=== PATIENT | female | born 1935 | race Caucasian/White ===

== ENCOUNTER 2016-10-13 08:45 | Emergency (ER) | payer MEDICARE, MEDICAID ==
[~2016-10-13] VITALS: Ht 149.9 cm; Wt 60.0 kg
[~2016-10-13 08:45] MED LIST: ASPI81TA11 PO; BIOT5000 PO; CALC1TAB26 PO; CIPR500T4 PO; DONE10TA14 PO; DOXY100C PO; EVEN10003 PO; FERR325T72 PO; HYDR-2768 PO; LISI-360 PO; MAPA325T6 PO; OMEG1050 PO; OMEP20TA PO; PROBCAP4 PO; PROMSYP3 PO; TAB-TAB PO; ULTR50TA PO; VITA10004 PO; ZOFR4TAB3 SL; [UNRECOGNIZED DRUG - CODE] PO
[2016-10-13 09:35] VITALS: BP_SYST 186; BP_SYST 191; BP_DIAS 83; BP_DIAS 88; PULSE 86; RESP 16; TEMP 98.3; O2SAT 99
[2016-10-13] MEDS ORDERED: diphenhydrAMINE HCL 50 MG/ML VIAL IVP ONE (09:45)
[2016-10-13] MEDS ORDERED: SODIUM CHLORIDE 0.9% FLUSH 10 ML FLUSH IVF PRN (09:45)
[2016-10-13] MEDS ORDERED: METOCLOPRAMIDE HCL 10 MG/2 ML VIAL IVP ONE (09:45)
[2016-10-13] MEDS ORDERED: FERR1TAB58 PO (10:03)
[2016-10-13] MEDS ORDERED: TRAM50TA PO (10:03)
[2016-10-13] MEDS ORDERED: CALCTAB23 PO (10:03)
[2016-10-13] MEDS ORDERED: BIOT1000 PO (10:03)
[2016-10-13] MEDS ORDERED: EVEN10003 (10:03)
[2016-10-13] MEDS ORDERED: ACET1CAP18 PO (10:03)
[2016-10-13] MEDS ORDERED: GLEE100T PO (10:03)
[2016-10-13] MEDS ORDERED: ASPI81TA81 (10:03)
[2016-10-13 10:33] LABS: AUTOMATED NEUTROPHIL # 3.6 TH/MM3 (1.8-7.7); BASOPHIL # 0.1 TH/MM3 (0-0.2); BASOPHIL % 1.1 % (0.0-2.0); EOSINOPHIL # 0.1 TH/MM3 (0-0.4); EOSINOPHIL % 2.1 % (0.0-4.0); HEMATOCRIT 29.3 % (35.0-46.0); HEMO FLAGS DIFF FINAL; LYMPH % 16.8 % (9.0-44.0); LYMPHOCYTE # 0.9 TH/MM3 (1.0-4.8); MEAN CELL VOLUME 90.2 FL (80.0-100.0); MEAN CORPUSCULAR HEMOGLOBIN 30.4 PG (27.0-34.0); MEAN CORPUSCULAR HGB CONC 33.7 % (32.0-36.0); MONO % 14.6 % (0.0-8.0); NEUT % 65.4 % (16.0-70.0); PLATELET COUNT 126 TH/MM3 (150-450); RED BLOOD COUNT 3.24 MIL/MM3 (4.00-5.30); RED CELL DISTRIBUTION WIDTH 15.3 % (11.6-17.2); WHITE BLOOD COUNT 5.4 TH/MM3 (4.0-11.0)
--- NOTE | 2016-10-13 10:46 | PD ---
HPI Chief Complaint: Headache Time Seen by Provider: 09:37 Travel History International Travel<30 days: No Contact w/Intl Traveler<30days: No Traveled to known affect area: No History of Present Illness HPI Patient is a pleasant 80-year-old female presents emergency department with complaint of headache. Patient states that for the last 4 days she has had a bilateral frontotemporal headache. Throbbing in nature. She is been taking some Tylenol at home without much improvement of her symptoms. No associated visual changes, nausea, vomiting, neck stiffness. She has not noticed any other neurologic symptoms symptoms numbness, tingling, weakness. Patient is not a headachy person by nature, states she gets headaches infrequently. Though this is not the worse headache of her life, she states that it is approximately 8 out of 10 in severity. 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 Patient states that she is on Gleevec for her life but to her knowledge is cancer free. PFSH Past Medical History Hx Anticoagulant Therapy: Yes Anemia: Yes Arthritis: No Asthma: No Autoimmune Disease: No Anxiety: Yes Depression: No Heart Rhythm Problems: No Cancer: Yes (INTESTINAL) Cardiovascular Problems: Yes High Cholesterol: No Chest Pain: No Congestive Heart Failure: No COPD: No Diminished Hearing: No GERD: Yes Glaucoma: No Genitourinary: No Headaches: No Hepatitis: No Hiatal Hernia: No Hypertension: Yes Immune Disorder: No Kidney Stones: No Musculoskeletal: Yes (TENDON TEAR/STRAIN TO RT THUMB/IMPAIRED FUNCTION.) Psychiatric: No Migraines: No Myocardial Infarction: No Pneumonia: Yes Radiation Therapy: No Renal Failure: No Seizures: No Sickle Cell Disease: No Sleep Apnea: No Thyroid Disease: Yes Ulcer: No Tetanus Vaccination: > 5 Years Influenza Vaccination: Yes Menopausal: Yes : 3 Para: 3 Miscarriage: 0 : 0 Past Surgical History Abdominal Surgery: Yes (GI/TUMOR REMOVALS) AICD: No Appendectomy: Yes Arteriovenous Shunt: No Cardiac Surgery: No Section: Yes (X3) Cholecystectomy: Yes Ear Surgery: No Endocrine Surgery: No Eye Surgery: Yes (CATARACT REMOVAL; LENS IMPLANTS BILATERALLY) Genitourinary Surgery: No Gynecologic Surgery: Yes Hysterectomy: Yes Insulin Pump: No Joint Replacement: No Oral Surgery: No Pacemaker: No Thoracic Surgery: No Other Surgery: Yes Social History Alcohol Use: Yes (RARELY) Tobacco Use: No Substance Use: No Allergies-Medications (Allergen,Severity, Reaction): Coded Allergies: Novocain (Verified Allergy, Severe, 10/13/16) Procaine (Verified Allergy, Severe, ANAPHYLAXIS, 10/13/16) Reported Meds & Prescriptions Reported Meds & Active Scripts Active Reported Biotin 1,000 Mcg Tab 1,000 Mg PO Evening [place] Oil 1,000 Mg Cap Iron (Ferrous Sulfate) 50 Mg Tab 65 Mg PO DAILY Calcium 500 + D (Calcium Carbonate-Vitamin D) 500-125 Mg-Unit Tab 1 Tab PO BID Aspir-81 (Aspirin) 81 Mg Tabdr Tramadol (Tramadol HCl) 50 Mg Tab 50 Mg PO Q6H PRN Gleevec (Imatinib Mesylate) 100 Mg Tab 400 Mg PO DAILY Tylenol (Acetaminophen) 325 Mg Cap 325 Mg PO Q6H PRN Review of Systems Except as stated in HPI: all other systems reviewed are Neg Physical Exam Narrative GENERAL: Pleasant thin elderly female with bright pink hair in no acute distress SKIN: Warm and dry. HEAD: Atraumatic. Normocephalic. No temporal tenderness to palpation. EYES: Pupils equal and round. EOMI without nystagmus No scleral icterus. No injection or drainage. ENT: No nasal bleeding or discharge. Mucous membranes pink and moist. NECK: Supple without tenderness to palpation, no nuchal rigidity CARDIOVASCULAR: Regular rate and rhythm. RESPIRATORY: No accessory muscle use. GASTROINTESTINAL: Abdomen soft, non-tender, nondistended. MUSCULOSKELETAL: Moves all extremities normally. NEUROLOGICAL: Awake and alert. No obvious cranial nerve deficits. Motor grossly within normal limits. Normal speech. PSYCHIATRIC: Appropriate mood and affect; insight and judgment normal. Data Data Last Documented VS Vital Signs Date Time Temp Pulse Resp B/P Pulse Ox O2 Delivery O2 Flow Rate FiO2 10/13/16 12:30 87 16 137/79 99 Room Air 10/13/16 09:35 98.3 Orders Complete Blood Count With Diff (10/13/16 09:44) Basic Metabolic Panel (Bmp) (10/13/16 09:44) Ecg Monitoring (10/13/16 09:44) Iv Access Insert/Monitor (10/13/16 09:44) Oximetry (10/13/16 09:44) Sodium Chloride 0.9% Flush (Ns Flush) (10/13/16 09:45) Diphenhydramine Inj (Benadryl Inj) (10/13/16 09:45) Metoclopramide Inj (Reglan Inj) (10/13/16 09:45) Mri Brain W&W/O Contrast (10/13/16 ) Mra Brain W/O Contrast (Cow) (10/13/16 ) Potassium Chloride (Kcl) (10/13/16 11:15) Ketorolac Inj (Toradol Inj) (10/13/16 12:45) Labs Laboratory Tests Test 10/13/16 09:55 White Blood Count 5.4 TH/MM3 Red Blood Count 3.24 MIL/MM3 Hemoglobin 9.9 GM/DL Hematocrit 29.3 % Mean Corpuscular Volume 90.2 FL Mean Corpuscular Hemoglobin 30.4 PG Mean Corpuscular Hemoglobin 33.7 % Concent Red Cell Distribution Width 15.3 % Platelet Count 126 TH/MM3 Mean Platelet Volume 9.0 FL Neutrophils (%) (Auto) 65.4 % Lymphocytes (%) (Auto) 16.8 % Monocytes (%) (Auto) 14.6 % Eosinophils (%) (Auto) 2.1 % Basophils (%) (Auto) 1.1 % Neutrophils # (Auto) 3.6 TH/MM3 Lymphocytes # (Auto) 0.9 TH/MM3 Monocytes # (Auto) 0.8 TH/MM3 Eosinophils # (Auto) 0.1 TH/MM3 Basophils # (Auto) 0.1 TH/MM3 CBC Comment DIFF FINAL Differential Comment Sodium Level 144 MEQ/L Potassium Level 2.9 MEQ/L Chloride Level 106 MEQ/L Carbon Dioxide Level 29.2 MEQ/L Anion Gap 9 MEQ/L Blood Urea Nitrogen 13 MG/DL Creatinine 0.92 MG/DL Estimat Glomerular Filtration 59 ML/MIN Rate Random Glucose 99 MG/DL Calcium Level 8.4 MG/DL MDM Medical Decision Making Medical Screen Exam Complete: Yes Emergency Medical Condition: Yes Medical Record Reviewed: Yes Differential Diagnosis 80-year-old female with history of GIST on Gleevec here with complaint of 4 days of bilateral frontal temporal headache. Differential includes tension headache, cluster headache, migraine headache. There are no reproducible tenderness within the temporal region on exam to suggest temporal arteritis. Given her history of cancer, and the lack of frequent headaches metastatic lesions are certainly on the differential. My suspicion for subarachnoid hemorrhage or meningitis is exceedingly low. Narrative Course Patient placed on monitor, IV established and blood obtained. Patient was given Benadryl, Reglan for headache. CBC, BMP were obtained and notable for hemoglobin 9.9 which is up from her most recent baseline. Potassium 2.9, replaced with 80 mEq orally. MRI of the brain with and without contrast, MRA of the brain showed no acute abnormalities. Patient felt improved after Toradol and will be discharged home. Diagnosis Primary Impression: Headache Qualified Code: R51 - Acute nonintractable headache, unspecified headache type Referrals: Primary Care Physician as needed Patient Instructions: General Instructions Additional Instructions: Return to the emergency department for the warning signs discussed. Med/Other Pt SpecificInfo: No Change to Meds Disposition: 01 DISCHARGE HOME Condition: Stable Izzy Hay MD Oct 13, 2016 10:46
[2016-10-13 11:02] LABS: BICARBONATE 29.2 MEQ/L (21.0-32.0)
[2016-10-13 11:12] LABS: POTASSIUM 2.9 MEQ/L (3.5-5.1)
[2016-10-13] MEDS ORDERED: POTASSIUM CHLORIDE 20 MEQ CONTROLLED RELEASE TAB PO ONE (11:15)
[2016-10-13 12:30] VITALS: BP 137/79; PULSE 87; RESP 16; O2SAT 99
[2016-10-13] MEDS ORDERED: KETOROLAC TROMETHAMINE 30 MG/ML (IVP) VIAL IV PUSH ONE (12:45)
--- NOTE | 2016-10-13 13:06 | RADRPT ---
EXAM DATE/TIME: 10/13/2016 11:46 [facility] COMPARISON: No previous studies available for comparison. INDICATIONS : Mass. Cephaligia. Hx of colon ca. MEDICAL HISTORY : Carcinoma, colon. Hypertension. SURGICAL HISTORY : Appendectomy. Colon resection. Left femur/hip ENCOUNTER: Initial ACUITY: 2 day PAIN SCORE: 5/10 LOCATION: head Please note a normal MRA of the brain does not entirely exclude the possibility of a small aneurysm, nor the possibility of distal intracranial vessel disease. TECHNIQUE: 3D time of flight MRA was performed. Source images, multiplanar STS MIP, and 3D volume MIP reconstru ctions were reviewed. FINDINGS: There is excellent visualization of the major intracranial arteries out to the second-order branch ve ssels. There is no evidence for aneurysm, vessel truncation or stenosis, and no evidence for vascula r malformation. Patient is right vertebral dominance with a diminutive left vertebral terminating in PICA branch. 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 Patient is right vertebral dominant. Anatomic variant of the [place] as above. 2. Otherwise, intracranial vessels are all patent without aneurysmal disease. Rickey Ramírez MD on October 13, 2016 at 13:01 Board Certified Radiologist. This report was verified electronically.
--- NOTE | 2016-10-13 13:13 | RADRPT ---
EXAM DATE/TIME: 10/13/2016 11:46 [facility] COMPARISON: No previous studies available for comparison. INDICATIONS : Cephalgia. Hx of colon ca. CONTRAST: 12 cc Omniscan (gadodiamide) IV MEDICAL HISTORY : Carcinoma, colon. Hypertension. SURGICAL HISTORY : Appendectomy. Colon resection. Left femur/hip ENCOUNTER: Initial ACUITY: 2 day PAIN SCORE: 3/10 LOCATION: head TECHNIQUE: Multiplanar, multisequence MRI of the brain was performed both prior to and following the administrat ion of paramagnetic contrast. FINDINGS: CEREBRUM: The ventricles are normal for age. No evidence of midline shift, mass lesion, hemorrhage or acute in farction. No extraaxial fluid collections are seen. The pituitary gland and suprasellar cistern are normal in configuration. There is an old lacunar infarct in the left basal ganglia. WHITE MATTER: There is extensive white matter signal abnormality most consistent with microvascular ischemic demyel inative change. No significant signal abnormalities are seen in the white matter. POSTERIOR FOSSA: The cerebellum and brainstem are intact. The 4th ventricle is midline. The cerebellopontine angle is unremarkable. The cerebellar tonsils are normal in position. DIFFUSION IMAGING: No focal areas of restricted diffusion are seen. No evidence of acute infarction. EXTRACRANIAL: The visualized portions of the orbits are unremarkable. There is mucoperiosteal sinus disease involvi ng the right maxillary sinus. POST-CONTRAST: No abnormal areas of parenchymal or dural enhancement. No evidence of blood-brain barrier breakdown. CONCLUSION: 1. Punctate, old lacunar infarct in the left basal ganglia. No acute intracranial abnormality identif ied. 2. No findings to indicate metastatic disease to the brain. 3. 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 Kristopher Villela MD on October 13, 2016 at 13:06 Board Certified Radiologist. This report was verified electronically.
[2016-10-13] MEDS ORDERED: GADODIAMIDE PF 287 MG/ML 5 ML VIAL (for RAD MRI) IV ONE (14:38)
== END 2016-10-13 14:25 | disposition home or self-care (01) ==
LOC: NEPB 08:45
DX: R51 Headache (principal); E87.6 Hypokalemia; I10 Essential (primary) hypertension; Z79.01 Long term (current) use of anticoagulants
CPT/HCPCS: 70544; 70553; 80048; 85025; 96374; 96375; 99284; A9579; J1200; J1885; J2765

== ENCOUNTER 2016-10-17 14:24 | Emergency (ER) | payer MEDICARE, MEDICAID ==
[~2016-10-17] VITALS: Ht 149.9 cm; Wt 65.0 kg
[~2016-10-17 14:24] MED LIST changes: +ACET1CAP18 PO; -ASPI81TA11 PO; +ASPI81TA81; +BIOT1000 PO; -BIOT5000 PO; -CALC1TAB26 PO; +CALCTAB23 PO; -CIPR500T4 PO; -DONE10TA14 PO; -DOXY100C PO; +EVEN10003; -EVEN10003 PO; +FERR1TAB58 PO; -FERR325T72 PO; +GLEE100T PO; -HYDR-2768 PO; -LISI-360 PO; -MAPA325T6 PO; -OMEG1050 PO; -OMEP20TA PO; -PROBCAP4 PO; -PROMSYP3 PO; -TAB-TAB PO; +TRAM50TA PO; -ULTR50TA PO; -VITA10004 PO; -ZOFR4TAB3 SL; -[UNRECOGNIZED DRUG - CODE] PO
[2016-10-17 14:27] VITALS: BP 222/100; PULSE 87; RESP 17; TEMP 98.2; O2SAT 96
[2016-10-17] MEDS ORDERED: ACETAMINOPHEN 500 MG CPLT PO ONE (15:30)
--- NOTE | 2016-10-17 15:55 | PD ---
HPI Chief Complaint: Fall Time Seen by Provider: 15:17 Travel History International Travel<30 days: No Contact w/Intl Traveler<30days: No Traveled to known affect area: No History of Present Illness HPI Patient is a pleasant 80-year-old female presents emergency department after fall. Patient slipped, falling backwards and hitting her bottom back and head. No LOC. She notes a occipital headache mild. No nausea or vomiting. Patient also complains of pain in the right back region. This is made slightly worse with movement but she has been able to ambulate without any difficulty. Pain is mild. PFSH Past Medical History Hx Anticoagulant Therapy: Yes Anemia: Yes Arthritis: No Asthma: No Autoimmune Disease: No Anxiety: Yes Depression: No Heart Rhythm Problems: No Cancer: Yes (INTESTINAL) Cardiovascular Problems: Yes High Cholesterol: No Chemotherapy: Yes Chest Pain: No Congestive Heart Failure: No COPD: No Diminished Hearing: No GERD: Yes Glaucoma: No Genitourinary: No Headaches: No Hepatitis: No Hiatal Hernia: No Hypertension: Yes Immune Disorder: No Kidney Stones: No Musculoskeletal: Yes (TENDON TEAR/STRAIN TO RT THUMB/IMPAIRED FUNCTION.) Psychiatric: No Migraines: No Myocardial Infarction: No Pneumonia: Yes Radiation Therapy: No Renal Failure: No Seizures: No Sickle Cell Disease: No Sleep Apnea: No Thyroid Disease: Yes Ulcer: No Tetanus Vaccination: > 5 Years Influenza Vaccination: Yes ?: Not Menopausal: Yes : 3 Para: 3 Miscarriage: 0 : 0 Past Surgical History Abdominal Surgery: Yes (GI/TUMOR REMOVALS) AICD: No Appendectomy: Yes Arteriovenous Shunt: No Cardiac Surgery: No Section: Yes (X3) Cholecystectomy: Yes Ear Surgery: No Endocrine Surgery: No Eye Surgery: Yes (CATARACT REMOVAL; LENS IMPLANTS BILATERALLY) Genitourinary Surgery: No Gynecologic Surgery: Yes Hysterectomy: Yes Insulin Pump: No Joint Replacement: No Oral Surgery: No Pacemaker: No Thoracic Surgery: No Other Surgery: Yes Social History Alcohol Use: Yes (RARELY) Tobacco Use: No Substance Use: No Allergies-Medications (Allergen,Severity, Reaction): Coded Allergies: Novocain (Verified Allergy, Severe, 10/17/16) Procaine (Verified Allergy, Severe, ANAPHYLAXIS, 10/17/16) Reported Meds & Prescriptions Reported Meds & Active Scripts Active Reported Biotin 1,000 Mcg Tab 1,000 Mg PO Evening [place] Oil 1,000 Mg Cap Iron (Ferrous Sulfate) 50 Mg Tab 65 Mg PO DAILY Calcium 500 + D (Calcium Carbonate-Vitamin D) 500-125 Mg-Unit Tab 1 Tab PO BID Aspir-81 (Aspirin) 81 Mg Tabdr Tramadol (Tramadol HCl) 50 Mg Tab 50 Mg PO Q6H PRN Gleevec (Imatinib Mesylate) 100 Mg Tab 400 Mg PO DAILY Tylenol (Acetaminophen) 325 Mg Cap 325 Mg PO Q6H PRN Review of Systems Except as stated in HPI: all other systems reviewed are Neg Physical Exam Narrative GENERAL: Elderly female in no acute distress SKIN: Focused skin assessment warm/dry. HEAD: Small hematoma on the occiput Normocephalic. EYES: Pupils equal and round. No scleral icterus. No injection or drainage. ENT: No nasal bleeding or discharge. Mucous membranes pink and moist. NECK: Supple without midline tenderness to palpation CARDIOVASCULAR: Regular rate and rhythm. RESPIRATORY: No accessory muscle use. MUSCULOSKELETAL: No midline tenderness to palpation of the cervical, thoracic, lumbar spine. No obvious deformity. Patient has tenderness to palpation over the right buttock/sacral region. NEUROLOGICAL: Awake and alert. Normal gait, GCS 15 with nonfocal neuro exam. Normal speech. PSYCHIATRIC: Appropriate mood and affect; insight and judgment normal. Data Data Last Documented VS Vital Signs Date Time Temp Pulse Resp B/P Pulse Ox O2 Delivery O2 Flow Rate FiO2 10/17/16 15:16 Room Air 10/17/16 14:27 98.2 87 17 222/100 96 Orders Pelvis, Ap Only (Routine) (10/17/16 15:17) Ct Brain W/O Iv Contrast(Rout) (10/17/16 ) Acetaminophen (Tylenol) (10/17/16 15:30) MDM Medical Decision Making Medical Screen Exam Complete: Yes Emergency Medical Condition: Yes Medical Record Reviewed: Yes Differential Diagnosis 80-year-old female here with complaint of back pain and head pain after a fall. Differential includes mechanical fall, closed head injury, skull fracture, ICH , contusion, pelvic fracture, strain Narrative Course Patient given Tylenol. CT of the brain and x-ray of the pelvis showed no acute abnormalities. Patient reassured and discharged home Diagnosis Primary Impression: Closed head injury Qualified Code: S09.90XA - Closed head injury, initial encounter Additional Impression: Buttock pain Referrals: Primary Care Physician as needed Additional Instructions: Tylenol as needed for pain. Follow-up with primary care provider symptoms persist. Med/Other Pt SpecificInfo: No Change to Meds Disposition: 01 DISCHARGE HOME Condition: Stable Izzy Hay MD Oct 17, 2016 15:55
--- NOTE | 2016-10-17 16:30 | RADRPT ---
EXAM DATE/TIME: 10/17/2016 15:44 [facility] COMPARISON: MRI BRAIN W & W/O CONTRAST, October 13, 2016, 11:46. CT BRAIN W/O CONTRAST, August 03, 2015, 12:17. INDICATIONS : Fall, hit posterior head. RADIATION DOSE: 33.55 CTDIvol (mGy) MEDICAL HISTORY : Hypertension. Carcinoma, colon. Cardiovascular disease SURGICAL HISTORY : Appendectomy. Hysterectomy.Cholecystectomy. ENCOUNTER: Initial ACUITY: 1 day PAIN SCALE: 4/10 LOCATION: Right occipital TECHNIQUE: Multiple contiguous axial images were obtained of the head. Using automated exposure control and adj ustment of the mA and/or kV according to patient size, radiation dose was kept as low as reasonably a chievable to obtain optimal diagnostic quality images. FINDINGS: CEREBRUM: Small chronic lacunar arch and involve the left basal ganglia. The ventricles are normal for age. No evidence of midline shift, mass lesion, hemorrhage or acute infarction. No extra-axial fluid collec tions are seen. POSTERIOR FOSSA: The cerebellum and brainstem are intact. The 4th ventricle is midline. The cerebellopontine angle i s unremarkable. EXTRACRANIAL: The visualized portion of the orbits is intact. SKULL: The calvaria is intact. No evidence of skull fracture. CONCLUSION: 1. No acute intracranial abnormality. 2. Small chronic lacunar infarction involving the left basal ganglia. Peewee Prado Jr., MD on October 17, 2016 at 16:27 Board Certified Radiologist. This report was verified electronically.
--- NOTE | 2016-10-17 16:51 | RADRPT ---
EXAM DATE/TIME: 10/17/2016 15:18 [facility] COMPARISON: No previous studies available for comparison. INDICATIONS : Evaluate for fracture, patient fell today. Right side lower back pain. MEDICAL HISTORY : Carcinoma, colon. Hypertension SURGICAL HISTORY : Appendectomy. Hysterectomy. section. Left hip pinning ENCOUNTER: Initial ACUITY: 1 day PAIN SCORE: 5/10 LOCATION: Right Lower back FINDINGS: There is no evidence of acute fracture. 3 cannulated screws are present in all fracture of the left femoral neckOsseous structures are osteopenic. CONCLUSION: 1. There is no evidence of acute fracture. Willy Reddy MD on October 17, 2016 at 16:49 Board Certified Radiologist. This report was verified electronically.
== END 2016-10-17 17:10 | disposition home or self-care (01) ==
LOC: NEPB 14:24
DX: S09.90XA Unspecified injury of head, initial encounter (principal); M54.5 Low back pain; W01.0XXA Fall on same level from slipping, tripping and stumbling without subsequent striking against object, initial encounter
CPT/HCPCS: 70450; 72170

== ENCOUNTER 2017-01-22 13:03 | Inpatient (IN) | payer MEDICARE, MEDICAID ==
[2017-01-22] VITALS (9 sets, daily range): BP systolic 118–183; BP diastolic 66–91; PULSE 84–110; RESP 16–27; TEMP 98.5–99.6; O2SAT 89–100
[~2017-01-22] VITALS: Ht 157.5 cm; Wt 63.0 kg
[~2017-01-22 13:03] MED LIST changes: -ASPI81TA81; +ASPI81TA81 PO
[2017-01-22] MEDS ORDERED: SODIUM CHLOR 0.9% 1000 ML INJ 1,000 ML IV ONE (13:07)
--- NOTE | 2017-01-22 13:16 | PD ---
HPI Chief Complaint: Neuro Symptoms/ Deficits Time Seen by Provider: 13:07 Travel History International Travel<30 days: No Contact w/Intl Traveler<30days: No Traveled to known affect area: No History of Present Illness HPI The patient is a 81-year-old female who presents emergency department via EMS as a stroke alert. According to EMS the patient was last seen somewhat between 11:30 AM and noon at her assisted living facility, dressed, ambulatory, and verbal. The patient was then found at noon lying on the floor in her apartment, mostly unclothed, and nonverbal. EMS states the patient has a left gaze, was nonverbal, but will withdraw all 4 extremities to pain. The patient does have a history of dementia and the medication list they brought with her reveals no anticoagulants. Upon arrival the patient is nonverbal, does not follow commands, and is unable to provide any information. PFSH Past Medical History Hx Anticoagulant Therapy: Yes Anemia: Yes Arthritis: No Asthma: No Autoimmune Disease: No Anxiety: Yes Depression: No Heart Rhythm Problems: No Cancer: Yes (INTESTINAL) Cardiovascular Problems: Yes High Cholesterol: No Chemotherapy: Yes Chest Pain: No Congestive Heart Failure: No COPD: No Diminished Hearing: No GERD: Yes Glaucoma: No Genitourinary: No Headaches: No Hepatitis: No Hiatal Hernia: No Hypertension: Yes Immune Disorder: No Kidney Stones: No Musculoskeletal: Yes (TENDON TEAR/STRAIN TO RT THUMB/IMPAIRED FUNCTION.) Psychiatric: No Migraines: No Myocardial Infarction: No Pneumonia: Yes Radiation Therapy: No Renal Failure: No Seizures: No Sickle Cell Disease: No Sleep Apnea: No Thyroid Disease: Yes Ulcer: No Menopausal: Yes : 3 Para: 3 Miscarriage: 0 : 0 Past Surgical History Abdominal Surgery: Yes (GI/TUMOR REMOVALS) AICD: No Appendectomy: Yes Arteriovenous Shunt: No Cardiac Surgery: No Section: Yes (X3) Cholecystectomy: Yes Ear Surgery: No Endocrine Surgery: No Eye Surgery: Yes (CATARACT REMOVAL; LENS IMPLANTS BILATERALLY) Genitourinary Surgery: No Gynecologic Surgery: Yes Hysterectomy: Yes Insulin Pump: No Joint Replacement: No Oral Surgery: No Pacemaker: No Thoracic Surgery: No Other Surgery: Yes Social History Alcohol Use: Yes (RARELY) Tobacco Use: No Substance Use: No Allergies-Medications (Allergen,Severity, Reaction): Coded Allergies: Novocain (Verified Allergy, Severe, 01/22/17) Procaine (Verified Allergy, Severe, ANAPHYLAXIS, 01/22/17) Reported Meds & Prescriptions Reported Meds & Active Scripts Active Reported Biotin 1,000 Mcg Tab 1,000 Mg PO Evening [place] Oil 1,000 Mg Cap Iron (Ferrous Sulfate) 50 Mg Tab 65 Mg PO DAILY Calcium 500 + D (Calcium Carbonate-Vitamin D) 500-125 Mg-Unit Tab 1 Tab PO BID Aspir-81 (Aspirin) 81 Mg Tabdr Tramadol (Tramadol HCl) 50 Mg Tab 50 Mg PO Q6H PRN Gleevec (Imatinib Mesylate) 100 Mg Tab 400 Mg PO DAILY Tylenol (Acetaminophen) 325 Mg Cap 325 Mg PO Q6H PRN Review of Systems ROS Limitations: Clinical Condition, Altered Mental Status Except as stated in HPI: all other systems reviewed are Neg Eyes: Positive: Other (left gaze) Neurologic: Positive: Change in Mentation, Slurred Speech (nonverbal) Physical Exam Exam Limitations: Clinical Condition Narrative GENERAL: Eyes open, only looks to the midline and to the left. Does not follow commands. SKIN: Focused skin assessment warm/dry. HEAD: Atraumatic. Normocephalic. EYES: Pupils equal and round. Pupils are 3 mm bilateral and reactive. We'll look from the midline to the left, but will not look to the right. ENT: No nasal bleeding or discharge. Mucous membranes pink and moist. NECK: Trachea midline. No JVD. CARDIOVASCULAR: Irregularly irregular, heart rate in the 140s. RESPIRATORY: Mild tachypnea with a respiratory rate of 26, diminished breath sounds right base. GASTROINTESTINAL: Abdomen soft, non-tender, nondistended. No obvious distention. MUSCULOSKELETAL: No obvious deformities. No clubbing. No cyanosis. No edema. NEUROLOGICAL: Eyes open, nonverbal, does not answer questions or follow commands. Does withdraw the upper and lower extremities to pain, but will not follow commands in regards to drift, finger to nose, heel to starks, all responses sensation testing. PSYCHIATRIC: Unable to assess. Data Data Last Documented VS Vital Signs Date Time Temp Pulse Resp B/P Pulse Ox O2 Delivery O2 Flow Rate FiO2 01/22/17 14:53 100 18 123/69 100 100 01/22/17 14:20 Ventilator 01/22/17 13:47 4 01/22/17 13:06 98.5 Orders Diet Npo (01/22/17 Lunch) Activity Bed Rest (01/22/17 ) Electrocardiogram (01/22/17 ) I-Stat Creatinine (01/22/17 13:07) I-Stat Profile (01/22/17 13:07) Prothrombin Time / Inr (Pt) (01/22/17 13:07) Act Partial Throm Time (Ptt) (01/22/17 13:07) Complete Blood Count With Diff (01/22/17 13:07) Fibrinogen (01/22/17 13:07) Creatine Kinase (Cpk) (01/22/17 13:07) Troponin I (01/22/17 13:07) Ua Includes Microscopic (01/22/17 13:07) Drug Screen, Random Urine (01/22/17 13:07) Type And Screen (01/22/17 13:07) Ct Brain W/O Iv Contrast(Rout) (01/22/17 ) Cta Brain W Iv Contrast W 3d (01/22/17 13:07) Cta Neck W Iv Contrast W 3d (01/22/17 13:07) Beta Hcg (Quant/Titer) (01/22/17 13:07) Consult Neurology (01/22/17 ) Blood Glucose (01/22/17 13:07) Ecg Monitoring (01/22/17 13:07) Neuro Checks Q2HX12,Q4H (01/22/17 13:07) Nursing Bedside Swallow Assess .ONCE (01/22/17 13:07) Iv Access Insert/Monitor (01/22/17 13:07) NPO (01/22/17 13:07) Oximetry (01/22/17 13:07) Oxygen Administration (01/22/17 13:07) Sodium Chlor 0.9% 1000 Ml Inj (Ns 1000 M (01/22/17 13:07) Resp Oxygen Arjun C Titrat 1-4 L (01/22/17 13:07) Cath For Specimen (01/22/17 13:07) (Hub Use Only)Inp Phy Cons/Ref (01/22/17 13:19) Lactic Acid (01/22/17 13:24) Iohexol 350 Inj (Omnipaque 350 Inj) (01/22/17 13:42) CKMB (01/22/17 13:08) CKMB% (01/22/17 13:08) Etomidate Inj (Amidate Inj) (01/22/17 14:04) Succinylcholine Inj (Quelicin Inj) (01/22/17 14:04) Chest, Single Ap (01/22/17 ) Propofol 1000 Mg/100 Ml Inj (Diprivan 10 (01/22/17 14:10) Blood Culture (01/22/17 14:45) Lactic Acid (01/22/17 14:45) Cefepime Inj (Maxipime Inj) (01/22/17 14:45) Azithromycin Inj (Zithromax Inj) (01/22/17 14:45) Aspirin Supp (Aspirin Supp) (01/22/17 15:00) Admit Order (Ed Use Only) (01/22/17 15:21) Labs Laboratory Tests Test 01/22/17 01/22/17 01/22/17 01/22/17 13:05 13:08 14:00 15:18 Lactic Acid Level 2.1 mmol/L 2.4 mmol/L White Blood Count 15.8 TH/MM3 Red Blood Count 4.34 MIL/MM3 Hemoglobin 13.7 GM/DL Bedside Hemoglobin 13.6 G/DL Hematocrit 39.6 % Bedside Hematocrit 40.0 % Mean Corpuscular Volume 91.2 FL Mean Corpuscular Hemoglobin 31.5 PG Mean Corpuscular Hemoglobin 34.6 % Concent Red Cell Distribution Width 14.0 % Platelet Count 143 TH/MM3 Mean Platelet Volume 8.7 FL Neutrophils (%) (Auto) 88.7 % Lymphocytes (%) (Auto) 5.3 % Monocytes (%) (Auto) 5.9 % Eosinophils (%) (Auto) 0.0 % Basophils (%) (Auto) 0.1 % Neutrophils # (Auto) 14.0 TH/MM3 Lymphocytes # (Auto) 0.8 TH/MM3 Monocytes # (Auto) 0.9 TH/MM3 Eosinophils # (Auto) 0.0 TH/MM3 Basophils # (Auto) 0.0 TH/MM3 CBC Comment DIFF FINAL Differential Comment Prothrombin Time 10.7 SEC Prothromb Time International 1.0 RATIO Ratio Activated Partial 27.8 SEC Thromboplast Time Fibrinogen 342 mg/dL Bedside Sodium 142 MMOL/L Bedside Potassium 3.1 MMOL/L Bedside Chloride 108 MMOL/L Bedside Blood Urea Nitrogen 28 MG/DL Bedside Creatinine 0.9 MG/DL Bedside Glucose 171 MG/DL Total Creatine Kinase 1946 U/L Creatine Kinase MB 17.7 NG/ML Creatine Kinase MB % 0.9 % Troponin I 0.44 NG/ML Human Chorionic Gonadotropin, LESS THAN 1 Quant MIU/ML Blood Type A POSITIVE Antibody Screen NEGATIVE Urine Color YELLOW Urine Turbidity HAZY Urine pH 5.5 Urine Specific [place] 1.015 Urine Protein 100 mg/dL Urine Glucose (UA) NEG mg/dL Urine Ketones 10 mg/dL Urine Occult Blood MOD Urine Nitrite NEG Urine Bilirubin NEG Urine Urobilinogen LESS THAN 2.0 MG/DL Urine Leukocyte Esterase NEG Urine RBC 1 /hpf Urine WBC 1 /hpf Urine Amorphous Sediment RARE Urine Bacteria MANY /hpf Microscopic Urinalysis Comment CATH Urine Opiates Screen NEG Urine Barbiturates Screen NEG Urine Amphetamines Screen NEG Urine Benzodiazepines Screen NEG Urine Cocaine Screen NEG Urine Cannabinoids Screen NEG MDM Medical Screen Exam Complete: Yes Emergency Medical Condition: Yes Medical Record Reviewed: Yes EKG Prior to Arrival: No Differential Diagnosis Differential diagnosis includes CVA, TIA, intracranial hemorrhage, seizure, complex seizure, partial seizure, encephalopathy. Narrative Course IV was established, labs are drawn and sent, and the patient was placed on cardiac telemetry monitoring and continuous pulse oximetry monitoring. Stroke alert was called in the field, upon arrival neurologic exam was performed and I discussed the patient with the on-call neurologist Dr. Walker. The patient went immediately for CT the brain and CTA of the head and neck. Review the patient' s labs revealed no obvious contraindications to TPA, however, patient's stroke scale would be administered high as she cannot follow commands and is nonverbal. Other possibilities or intracranial hemorrhage and seizure. EKG reveals atrial fibrillation with RVR, patient had diminished breath sounds in the right base and was hypoxic, she was satting 85% on 4 L via nasal cannula. The patient appears to have A. fib with RVR, confusion, and is now nonverbal. I discussed the patient with the on-call radiologist, Dr. Reddy, who reviewed the CT and CTA, no evidence of acute infarct. The patient very well may be post ictal versus delirium secondary to sepsis. Blood cultures were obtained and call was placed back to Dr. Walker at 2:01 PM. The patient was also reassessed immediately after CT, stone on the right side, and she would look to the right, there was no obvious left gaze any longer. As the patient had increasing respiratory rate, was hypoxic when placed on a nonrebreather to 88%, a decision was made to intubate. Nursing staff did contact the daughter who stated she would like everything to be done. No TPA was administered as patient symptoms cannot easily be explained by CVA/TIA, she may have postictal state versus abscess. I believe the patient's symptoms much more likely related to seizure with secondary aspiration and hypoxia versus underlying sepsis with delirium. Therefore, no TPA was administered, I did discuss the clinical findings with the neurologist, Dr. Walker. Chest x-ray reveals left lower lobe infiltrates, the patient was covered with cefepime and Zithromax and she will be in the intensive care unit. Blood cultures and lactic acid were ordered prior to antibiotics. The patient will be admitted to [facility]. The on-call blower installer was paged for admission at 2:45 PM. Critical Care Narrative Aggregate critical care time was 40 minutes. Time to perform other separately billable procedures was not included in the critical care time. My time did not include minutes spent treating any other patients simultaneously or on activities that did not directly contribute to the patient's treatment. The services I provided to this patient were to treat and/or prevent clinically significant deterioration that could result in: Anoxia, hypoxia, arrhythmia, aspiration, sepsis, . I provided critical care services requiring my management, as noted below: Chart data review, documentation time, medication orders and management, vital sign assessments/reviewing monitor data, ordering and reviewing lab tests, ordering and interpreting/reviewing x-rays and diagnostic studies, care of the patient and discussion of the patient with the admitting physicians. Stroke Alert NIHSS NIH Stroke Scale Result: 19 NIHSS Time Completed: 14:07 Thrombolytic Contraindications Contraindications Comment: Symptoms are not easily explained by CVA alone with hypoxia, altered mental status, may be sepsis versus hypoxia. Procedures Procedure Narrative INTUBATION: The patient was put in optimal position for the procedure. Rapid sequence intubation was initiated by me using 20 milligrams of etomidate IV and 100 milligrams of succinylcholine IV. The patient was intubated with a 7-5 cuffed endotracheal tube. Tube placement was confirmed by visualization of the tube and balloon passing through the cords, capnometry and subsequent chest x- ray. Breath sounds were equal and well aerated bilaterally postintubation. No breath sounds over stomach. Patient tolerated procedure well. Physician Communication Physician Communication The on-call blower installer was paged for admission. I discussed the patient with Dr. Cloud agrees with admission. Diagnosis Diagnosis: Primary Impression: Altered mental status Qualified Code: R41.82 - Altered mental status, unspecified altered mental status type Additional Impressions: Hypoxia Elevated troponin Pneumonia Qualified Code: J18.1 - Pneumonia of left lower lobe due to infectious organism Admitting Physician Requests: Admit Condition: Critical Kvng José MD Jan 22, 2017 13:16
[2017-01-22 13:24] LABS: I-STAT POTASSIUM 3.1 MMOL/L (3.5-4.9); I-STAT SODIUM 142 MMOL/L (138-146)
[2017-01-22 13:26] LABS: BASOPHIL % 0.1 % (0.0-2.0); HEMATOCRIT 39.6 % (35.0-46.0); HEMO FLAGS DIFF FINAL; LYMPH % 5.3 % (9.0-44.0); LYMPHOCYTE # 0.8 TH/MM3 (1.0-4.8); MEAN CELL VOLUME 91.2 FL (80.0-100.0); MEAN CORPUSCULAR HEMOGLOBIN 31.5 PG (27.0-34.0); MEAN CORPUSCULAR HGB CONC 34.6 % (32.0-36.0); MONO % 5.9 % (0.0-8.0); NEUT % 88.7 % (16.0-70.0); PLATELET COUNT 143 TH/MM3 (150-450); RED BLOOD COUNT 4.34 MIL/MM3 (4.00-5.30); WHITE BLOOD COUNT 15.8 TH/MM3 (4.0-11.0)
[2017-01-22 13:37] LABS: APTT (PATIENT) 27.8 SEC (24.3-30.1); PROTHROMBIN TIME - PATIENT 10.7 SEC (9.8-11.6)
[2017-01-22] MEDS ORDERED: IOHEXOL 350 MG/ML 10 ML VIAL (for RAD DIAG) IV ONE (13:42)
--- NOTE | 2017-01-22 13:47 | RADRPT ---
EXAM DATE/TIME: 01/22/2017 13:15 [facility] COMPARISON: No previous studies available for comparison. INDICATIONS : Stroke alert, left sided gaze. IV CONTRAST: 80 cc Omnipaque 350 (iohexol) IV ; Cumulative dose for multiple exams. RADIATION DOSE: 14.15 CTDIvol (mGy) ; Combined studies MEDICAL HISTORY : Non-responsive. SURGICAL HISTORY : Non-responsive. ENCOUNTER: Initial ACUITY: 1 day PAIN SCALE: Non-responsive LOCATION: Bilateral head TECHNIQUE: Volumetric scanning was performed using a multi-row detector CT scanner. The data was post processed with a variety of visualization algorithms including full volume maximum intensity projection, multi -planar sliding thin slab reformation, curved planar reformation, and surface rendering techniques. Using automated exposure control and adjustment of the mA and/or kV according to patient size, radiat ion dose was kept as low as reasonably achievable to obtain optimal diagnostic quality images. DICO M format image data is available electronically for review and comparison. FINDINGS: There is excellent visualization of the major intracranial arteries out to the second-order branch ve ssels. There is no evidence for aneurysm, vessel truncation or stenosis, and no evidence for vascula r malformation. No evidence of occlusion. CONCLUSION: Normal examination for a patient of this age. David Briggs MD on January 22, 2017 at 13:43 Board Certified Radiologist. This report was verified electronically.
[2017-01-22 13:57] LABS: BETA HCG QUANT LESS THAN 1 MIU/ML (0-5); CREATINE KINASE 1946 U/L (26-192)
--- NOTE | 2017-01-22 14:02 | RADRPT ---
EXAM DATE/TIME: 01/22/2017 13:15 [facility] COMPARISON: CTA BRAIN W 3D RECON, January 22, 2017, 13:15. CT BRAIN W/O CONTRAST, October 17, 2016, 15:44. INDICATIONS : Stroke alert, left sided gaze and aphasia today. RADIATION DOSE: 56.35 CTDIvol (mGy) This report was called by Willy Reddy MD to Dr. José at 1400 MEDICAL HISTORY : Non-responsive. SURGICAL HISTORY : Non-responsive. ENCOUNTER: Initial ACUITY: 1 day PAIN SCALE: Non-responsive LOCATION: Bilateral head TECHNIQUE: Multiple contiguous axial images were obtained of the head. Using automated exposure control and adj ustment of the mA and/or kV according to patient size, radiation dose was kept as low as reasonably a chievable to obtain optimal diagnostic quality images. DICOM format image data is available electro nically for review and comparison. FINDINGS: Noncontrast axial head CT demonstrates the ventricles to be normal in size and configuration with a n ormal sulcal pattern. No acute intracranial hemorrhage, acute cortical infarction, mass or midline sh ift is seen. There is a 10 mm hypodensity left basal ganglia can't most characteristic of old lacunar infarct. There is periventricular hypodensity compatible with chronic ischemic change slightly more than expected for patient this age. Posterior fossa structures are unremarkable. Bone windows are unremarkable. CONCLUSION: 1. No evidence of acute intracranial pathology. No masses are identified. 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 This report was verified electronically.
[2017-01-22] MEDS ORDERED: ETOMIDATE 20 MG/10 ML VIAL ONE (14:04)
[2017-01-22] MEDS ORDERED: SUCCINYLCHOLINE CHLORIDE 200 MG/10 ML VIAL ONE (14:04)
--- NOTE | 2017-01-22 14:07 | RADRPT ---
EXAM DATE/TIME: 01/22/2017 13:15 [facility] COMPARISON: No previous studies available for comparison. INDICATIONS : Stroke alert, left sided gaze. IV CONTRAST: 80 cc Omnipaque 350 (iohexol) IV ; Cumulative dose for multiple exams. RADIATION DOSE: 14.15 CTDIvol (mGy) ; Combined studies MEDICAL HISTORY : Non-responsive. SURGICAL HISTORY : Non-responsive. ENCOUNTER: Initial ACUITY: 1 day PAIN SCALE: Non-responsive LOCATION: Bilateral neck Elevated flow velocities and ICA/CCA ratios have been found to correlate with increased degrees of vessel stenosis, calculated as percentage of diameter relative to a normal segment of distal ICA/CCA. TECHNIQUE: Volumetric scanning was performed using a multirow detector CT scanner. The data was post processed with a variety of visualization algorithms including full-volume maximum intensity projection, multip lanar sliding thin-slab reformation, curved-planar reformation, and surface-rendering techniques. Us ing automated exposure control and adjustment of the mA and/or kV according to patient size, radiatio n dose was kept as low as reasonably achievable to obtain optimal diagnostic quality images. DICOM f ormat image data is available electronically for review and comparison. FINDINGS: There is alveolar opacity in the left upper lobe characteristic of pneumonia. There is normal origin of vessels from the arch without evidence of proximal stenosis. The right vertebral artery is dominan t. There is a substernal nodule projecting off inferior aspect of the posterior right thyroid measuri ng 2.5 cm Examination of the right common carotid artery demonstrates the vessel to be widely patent. There is 10-20% stenosis at the origin of the right internal carotid artery with calcific plaque present More distally the cervical internal carotid artery is intact. Examination of the left common carotid artery demonstrates the vessel to be widely patent. There is 2 0-30% stenosis at the origin of the left internal carotid artery with calcific plaque present More di stally the cervical internal carotid artery is intact. Percent stenosis is calculated using the diameter of the stenotic region over the diameter of the nor mal distal internal carotid artery. CONCLUSION: 1. No evidence of carotid occlusion. There is 20-30% stenosis on the left and There is 10-20% stenosi s on the right 2. Left upper lobe pneumonia Willy Reddy MD on January 22, 2017 at 14:01 Board Certified Radiologist. This report was verified electronically.
[2017-01-22] MEDS ORDERED: PROPOFOL 1000 MG/100 ML INJ 100 ML ONE (14:10)
[2017-01-22 14:11] LABS: CKMB 17.7 NG/ML (0.5-3.6)
[2017-01-22 14:26] LABS: BACTERIA, URINE MANY /hpf; BLOOD, URINE MOD (NEG); GLUCOSE,URINE NEG (NEG); KETONE, URINE 10 mg/dL (NEG); NITRITE,URINE NEG (NEG); PH, URINE 5.5 (5.0-8.5); URINE COLOR YELLOW (YELLW/STRAW)
[2017-01-22 14:27] LABS: COMMENT (UR) CATH; COMMENT2 (UR) CATH
[2017-01-22 14:29] LABS: AMPHETAMINE, URINE NEG (NEG); BARBITURATES, URINE NEG (NEG); COCAINE, URINE NEG (NEG)
--- NOTE | 2017-01-22 14:43 | RADRPT ---
EXAM DATE/TIME: 01/22/2017 14:14 [facility] COMPARISON: CHEST SINGLE AP, April 12, 2014, 20:24. INDICATIONS : Post intubation. MEDICAL HISTORY : Hypertension. Gastroesophageal reflux disease. SURGICAL HISTORY : Appendectomy. Cholecystectomy. ENCOUNTER: Initial ACUITY: 1 day PAIN SCORE: Non-responsive. LOCATION: Bilateral chest FINDINGS: Status post placement of an endotracheal tube with the tip approximately 1 cm above the mathew. There is an NG tube in stomach. There is no evidence of pneumothorax. There are some patchy infiltrates in the left lower lung. The right lung is grossly clear. No pleural effusions or pulmonary edema. The h eart size is within normal limits. The bony structures are stable. CONCLUSION: 1. Status post placement of an NG tube and ET tube. The ET tube tip is 1 cm above the mathew. 2. No pneumothorax. 3. Patchy infiltrates in the left lower lung. David Briggs MD on January 22, 2017 at 14:40 Board Certified Radiologist. This report was verified electronically.
[2017-01-22] MEDS ORDERED: CEFEPIME INJ 2,000 MG in SODIUM CHLORIDE 0.9% INJ 100 ML IV ONE (14:45)
[2017-01-22] MEDS ORDERED: AZITHROMYCIN INJ 500 MG in SODIUM CHLOR 0.9% 250 ML INJ 250 ML IV ONE (14:45)
[2017-01-22] MEDS ORDERED: ASPIRIN 300 MG SUPP RECTAL ONE (15:00)
[2017-01-22] MEDS: SODIUM CHLOR 0.9% 1000 ML INJ 1,000 ML IV SCH ×2 (15:30→22:18)
[2017-01-22] MEDS: PANTOPRAZOLE SODIUM 40 MG VIAL IV SCH (15:30)
[2017-01-22] MEDS ORDERED: MISCELLANEOUS NURSING INFORMATION XX SCH (15:30)
[2017-01-22] MEDS ORDERED: MAGNESIUM HYDROXIDE SUSP 30 ML CUP PO PRN (15:30)
[2017-01-22] MEDS ORDERED: CHLORHEXIDINE GLUCONATE 2 % 1 PACK (2 CLOTHS) TOP PRN (15:30)
[2017-01-22] MEDS ORDERED: BISACODYL 10 MG SUPP RECTAL PRN (15:30)
[2017-01-22] MEDS ORDERED: SENNOSIDES 8.6 MG TAB PO PRN (15:30)
[2017-01-22] MEDS ORDERED: LACTULOSE SYRUP 20 GM/30 ML CUP PO PRN (15:30)
[2017-01-22] MEDS ORDERED: POTASSIUM CHLOR 20 MEQ PREMIX 100 ML IV PRN (15:45)
[2017-01-22] MEDS ORDERED: GLUCAGON 1 MG/ML VIAL OTHER PRN (15:45)
[2017-01-22] MEDS ORDERED: POTASSIUM PHOSPHATE MONOBASIC 500 MG TAB PO/TUBE PRN (15:45)
[2017-01-22] MEDS ORDERED: POTASSIUM CHLORIDE 25 MEQ EFFERVESCENT TAB PO PRN (15:45)
[2017-01-22] MEDS ORDERED: POTASSIUM CHLOR 40 MEQ PREMIX 100 ML IV PRN ×2 (15:45)
[2017-01-22] MEDS: METOPROLOL TARTRATE 25 MG TAB PO SCH ×2 (15:45→19:56)
[2017-01-22] MEDS ORDERED: SODIUM PHOSPHATE INJ 30 MMOL in SODIUM CHLOR 0.9% 250 ML INJ 240 ML IV PRN (15:45)
[2017-01-22] MEDS ORDERED: MAGNESIUM SULFATE INJ 2 GM in SODIUM CHLORIDE 0.9% INJ 96 ML IV PRN (15:45)
[2017-01-22] MEDS ORDERED: MAGNESIUM OXIDE 400 MG TAB PO PRN (15:45)
[2017-01-22] MEDS ORDERED: MAGNESIUM SULFATE INJ 4 GM in SODIUM CHLORIDE 0.9% INJ 92 ML IV PRN (15:45)
[2017-01-22] MEDS: INSULIN NovoLIN REGULAR SUPPLEMENTAL SCALE SQ SCH ×2 (15:45→21:45)
[2017-01-22] MEDS ORDERED: POTASSIUM PHOSPHATE MONOBASIC 500 MG TAB PO PRN (15:45)
[2017-01-22] MEDS ORDERED: POTASSIUM PHOSPHATE INJ 30 MMOL in SODIUM CHLOR 0.9% 250 ML INJ 250 ML IV PRN (15:45)
[2017-01-22] MEDS ORDERED: DEXTROSE 50% IN WATER 50 ML VIAL(D50) IV PRN (15:45)
[2017-01-22] MEDS: RESP: ALBUTEROL 2.5 MG/IPRATROPIUM 0.5 MG NEB (SCH) INH ×2 (15:54→20:29)
[2017-01-22] MEDS ORDERED: AZITHROMYCIN INJ 500 MG in SODIUM CHLOR 0.9% 250 ML INJ 250 ML IV SCH (16:00)
[2017-01-22] MEDS: HEPARIN SODIUM - SQ 10,000 UNITS/ML VIAL SQ SCH (16:00)
[2017-01-22 16:25] LABS: BLOOD GAS BASE EXCESS -9.7 mmol/L (-2-2); BLOOD GAS CARBOXYHEMOGLOBIN 0.5 % (0-4); BLOOD GAS HCO3 14 mmol/L (22-26); BLOOD GAS METHEMOGLOBIN 1.2 % (0-2); BLOOD GAS O2 HGB SATURATION 98 % (90-100); BLOOD GAS OXYGEN CONTENT 19.2 Vol % (12.0-20.0); BLOOD GAS PCO2 20 mmHg (38-42); BLOOD GAS PO2 377 mmHG (61-120); BLOOD GAS TOTAL HGB 13.4 G/DL (12.0-16.0); TEMP CORR TO 98.6
[2017-01-22 16:26] LABS: CRITICAL VALUE YES; FIO2 100 %; OXYGEN DEVICE VENTILATOR; VENT SETTINGS 500/16/+5
[2017-01-22 16:27] LABS: DRAW SITE RT RADIAL; NUMBER OF ARTERIAL PUNCTURES 1; STAT YES; ULNAR PULSE PRESENT
[2017-01-22] MEDS ORDERED: NAME10TA PO (17:20)
[2017-01-22] MEDS ORDERED: TYLE325T PO (17:20)
[2017-01-22] MEDS ORDERED: OMEP20TA PO (17:20)
[2017-01-22] MEDS ORDERED: LISI-515 PO (17:20)
--- NOTE | 2017-01-22 17:52 | MH ---
cc: KAYLEE WALKER M.D., ALAA M.D. DATE OF ADMISSION: 01/22/2017 DATE OF : 1935 HISTORY OF PRESENT ILLNESS: The patient is an 81-year-old female with past medical history of anemia of chronic disease, dementia, who presented to [facility] ED via EMS as a stroke alert. According to EMS the patient was last seen somewhere between 11:30 a.m. and noon at her assisted living facility. She was found on the floor in her apartment, nonverbal, with left gaze, but withdrawal all four extremities to pain. In the ER the patient was intubated with etomidate, succinylcholine and placed on full mechanical ventilation. Her initial blood pressure was 183/88. Stat CT scan of the brain was obtained which showed no evidence of any acute intracranial pathology and no masses identified. 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 The patient also had a CTA of the head which was within normal and CT of the neck showed no evidence of any carotid occlusion. Chest x-ray post intubation showed ET tube 1 cm above the mathew, patchy infiltrates in the left lower lung. After discussion with Dr. Walker from neurology service, the patient deemed not a candidate for TPA and it was thought that her symptoms could be secondary to being postictal versus delirium secondary to sepsis. In the ER she was then placed on Diprivan infusion for sedation and aspirin, cefepime, and azithromycin were ordered. Her laboratory data was significant for leukocytosis with WBC of 15.8, mild lactic acidemia with lactic acid level of 2.1, and elevated total CK at 1946 with troponin of 0.44. EKG in the ER showed A fib with RVR at a rate of 147 beats per minute and nonspecific ST wave abnormalities. The rest of the history is limited and most of the history was obtained from reviewing the medical records. When seen the patient is sedated and intubated. Her current blood pressure is 145/79 with a pulse of 114. PAST MEDICAL HISTORY: Significant for: 1. Dementia. 2. Hypertension 3. Thyroid disease. PAST SURGICAL HISTORY 1. Previous abdominal surgery for questionable GI tumor. 2. Previous appendectomy. 3. Previous hysterectomy. 4. Cholecystectomy 5. x3. 6. Previous cataract surgery. SOCIAL HISTORY Patient resides in assisted living facility, nonsmoker, nondrinker. FAMILY HISTORY Noncontributory. REPORTED MEDICATIONS: 1. Gleevec. 2. Tramadol. 3. Aspirin. 4. Calcium. 5. Iron. REVIEW OF SYSTEMS As per HPI. The rest of the systems unobtainable. PHYSICAL EXAMINATION 81-year-old female intubated for airway protection and sedated with Diprivan. Vital signs: Temperature 98.5, pulse 114, blood pressure 145/79, saturation 100% vent setting, assist control rate of 16, tidal volume 550, PEEP of 500%, FIO2. HEENT: Atraumatic, normocephalic. Pupils equal, round, reactive to light and accommodation. Extraocular muscles intact. Conjunctiva pink. Nonicteric sclerae. Oral mucosa within normal. Neck: Supple. No JVD, adenopathy or thyromegaly. Trachea midline. Orally intubated. Cardiovascular: Tachycardiac, irregularly irregular. Normal S1-S2. No murmurs, rubs or gallops noted. Pulmonary: Bilateral equal air entry with few coarse breath sounds on the left. Abdomen: Soft, nontender, no distension. Positive bowel sounds. Extremities: No cyanosis, clubbing or edema. Neuro: Intubated, sedated with Diprivan. LABORATORY DATA BMP from point of care sodium 142, potassium 3.1, chloride 108, BUN 28, creatinine 0.9, glucose 171, lactic acid 2.1, total CK 1946, CKMB 17.7, troponin 0.44. WBC 15.8, hemoglobin 13.7, hematocrit 39, platelet count 143, INR 1, PT 10.7, PTT 27.8, fibrinogen 342. Urine drug screen negative for opiates, benzodiazepines. Urinalysis showed many bacteria, negative leukocyte esterase negative nitrite. RADIOLOGIC STUDIES: CT brain, no evidence of any acute intracranial pathology. CTA of the head within normal. CTA of the neck showed no evidence of any carotid occlusion. Chest x-ray post intubation showed ET tube 1 cm above the mathew, patchy infiltrates left lower lung. EKG: A-fib with rate of 147 beats per minute and nonspecific ST wave abnormalities. IMPRESSION: 1. Vent dependent respiratory failure. 2. Encephalopathy. 3. Left-sided pneumonia. 4. Mild lactic acidemia. 5. A-fib with RVR. 6. Hypokalemia. 7. Elevated CKs. 8. Elevated troponin. 9. Leukocytosis. 10. History of dementia. RECOMMENDATIONS: 1. Monitor neuro status closely. The patient is on Diprivan infusion for sedation. 2. Daily sedation vacation. 3. CT scan of the brain in the ER negative for acute intracranial findings. 4. CTA of the brain within normal. 5. CT of the neck showed no carotid occlusion. 6. Will obtain EEG. Dr. Walker from neurology service is aware of the patient and was notified by the ED. 7. Continue with vent support and maintain sats above 92%. 8. Bronchodilators in the form of DuoNeb q.6. Will initiate ICU vent bundle. 9. Check ABG post intubation. 10. Monitor heart rate and blood pressure closely and maintain MAP greater than [address] on Lopressor 25 mg q. 12 and continue with aspirin 81 mg daily. 12. Monitor cardiac enzymes with troponins and will obtain 2-D echo to evaluate LV function and to rule out regional wall motion abnormalities. Will consult cardiology service. 13. Monitor renal function I's and O's and place on electrolyte replacement protocol. The patient will need potassium replacement. 14. Place on IV fluids NS at 84 mL an hour. Monitor lactic acid level. 15. Keep n.p.o. for now and place on Protonix 40 mg IV daily for GI prophylaxis. Start tube feeds within the next 24 hours if remains intubated. 16. Continue with broad-spectrum antibiotics in the form of azithromycin, vancomycin and Zosyn. Will check blood cultures x2 sets, sputum culture with gram stain, Strep pneumoniae and Legionella, urinary antigen, and will send nasal washing to rule out influenza. 17. Monitor for signs of infections which include fever and WBC. 18. Monitor CBC. 19. Place on sliding scale insulin with Accu-Chek q. 6-hour for glycemic control. 20. GI prophylaxis with Protonix 40 mg daily and DVT prophylaxis with SCDs and heparin subcu. Further recommendations will be based on hospital course. Critical care time: 35 minutes excluding procedures. MD DANELLE Latif/AIDEN /3:48 PM /5:07 PM
[2017-01-22] MEDS: PIPERACIL-TAZO 4.5 GM PREMIX 100 ML IV SCH ×2 (18:16→22:16)
[2017-01-22] MEDS: VANCOMYCIN INJ 1,000 MG in SODIUM CHLOR 0.9% 250 ML INJ 250 ML IV SCH (18:16)
[2017-01-22] MEDS: POTASSIUM CHLOR 20 MEQ PREMIX 100 ML IV PRN ×3 (18:16→22:35)
[2017-01-22] MEDS: DOCUSATE SODIUM 50 MG/SENNA 8.6 MG TAB PO SCH (19:56)
--- NOTE | 2017-01-22 22:04 | MB ---
cc: KAYLEE MEDINA M.D. DATE OF CONSULTATION: 01/22/2017 REASON FOR CONSULTATION: HISTORY OF PRESENT ILLNESS: The patient is an 81 year-old female coming from the independent living facility where she has been for 3 months or so. A stroke alert was called. I spoke to Dr. José on a couple of occasions and we did not feel she was a candidate for TPA due to the uncertainty of the primary diagnosis. She also had a "rather high NIH stroke scale." The patient was found unresponsive with left gaze. She came into the emergency room moving all four extremities. She was sent to imaging suite and had a CT brain that was negative for acute process. CT angio, head and neck, were essentially unremarkable. She gradually started becoming more responsive and her left gaze preference improved. She was noted to have atrial fibrillation with rapid AVR. She had some metabolic change. She had some respiratory insufficiency and she was intubated. On exam, the patient is intubated, sedated but she is awakening but she is actually following some commands. She started gripping and moving the extremities. The only possible focal finding is the fact she may be moving the left leg less than the right, and unclear if she is moving the left arm less than the right. She did move the lower extremities properly upon stimulation. The eyes were in primary position. Pupils are about the same size, reactive. The reflexes were 1+ and plantar responses flexor. She withdrew fairly promptly. ASSESSMENT: Sudden neurologic syndrome, possibly a seizure. She may have had some aspiration and hypoxia. Sepsis is a consideration as well. CT brain and CT angio of the head and neck studies were unremarkable and we felt she was not a good candidate for TPA. The diagnosis of ischemic stroke is a possibility but this is not really definitive. She is going to have an EEG study, monitor neuro. She has atrial fibrillation which is apparently a new diagnosis. There is some underlying mild dementia and she usually walks with a cane. According to the daughter at bedside, there is no history of stroke, seizures or TIA. No history of apparent atrial fibrillation in the past. An MRI of the brain will be obtained perhaps tomorrow when we expect her to be more stable and hopefully even extubated. I will follow her neurological course. Thank you for asking us to assist in her care. MD RAMEZ Ontiveros/AIDEN /4:36 PM /9:34 PM
[2017-01-22] MEDS: PROPOFOL 1000 MG/100 ML INJ 100 ML IV SCH (22:16)
--- NOTE | 2017-01-22 23:44 | MB ---
cc: BRENDA STRANGE DATE OF CONSULTATION: 01/22/2017 DATE OF : 1935 REASON FOR CONSULTATION: Elevated troponins. HISTORY OF PRESENT ILLNESS: 81-year-old female with past medical history significant for gastrointestinal stroma tumors in remission, on Gleevec, chronic anemia, getting transfusion two to three times a month, hypertension, atrial fibrillation, on no oral anticoagulation, history of GI bleeding, who presented to the emergency department via EMS with a stroke alert. The patient is intubated, sedated, unable to provide history. The history is taken from the chart. According to the chart, the patient lives in an assisted living facility. She was found down by the residents at 11:30 a.m. today. The patient was unclothed and nonverbal. In the emergency department she was intubated, and in respiratory failure. Head and neck CTA were unremarkable. Troponin was minimally elevated to 0.44. Lactic acid of 2.4, and urinalysis showing moderate amount of blood as well as bacteria. Cardiology has been consulted because of elevated troponin. The daughters are at bedside. The last time the daughters saw the patient was on the week of the 13 of January. They did not report any complaints at that time. Patient does not have a medical assistant dermatology. REVIEW OF SYSTEMS: Unobtainable. PAST MEDICAL HISTORY: 1. Gastrointestinal stromal tumors. 2. Partial stomach resection. 3. Hypertension. 4. Atrial fibrillation. 5. Appendectomy. 6. Cholecystectomy. 7. Hysterectomy. 8. Oophorectomy. ALLERGIES [place] FAMILY HISTORY Noncontributory. SOCIAL HISTORY Unremarkable. CARDIAC MEDICATIONS AT HOME: 1. Aspirin 81 milligrams p.o. daily 2. Lisinopril 20 milligrams p.o. daily PHYSICAL EXAMINATION Vital signs: Temperature 98.5, respiratory rate 18, pulse 94, blood pressure 155 /91. She is sating 100% on FIO2 of 100. General: Intubated in no acute distress. Neck: Endotracheal tube in place. No JVD. No carotid bruits. Heart: Irregularly irregular. No murmurs, rubs, or gallops appreciated. Lungs: She is vented. No wheezes, no rhonchi. Abdomen: Soft, non-tender, non-distended. Positive bowel sounds. Extremities: No cyanosis or edema. Pulses throughout. DATA: CBC, hemoglobin 13, hematocrit 39, platelet count 143. INR 1. Chemistry: Sodium 142, potassium 3.1. BUN 28, creatinine 0.9. Lactic acid 2.4. Troponin 0.44, total creatinine kinase 1946. Urinalysis is positive for blood and infection, blood cultures pending. IMAGING STUDIES Head and neck CTA unremarkable for acute stroke or hemorrhage. Chest x-ray: Patchy infiltrates in the left lower lung. Head CT: No evidence of acute intracranial pathology. EKG: Atrial fibrillation with rapid ventricular response and nonspecific ST changes. ASSESSMENT/PLAN 81-year-old female with cardiac risk factors that include hypertension, hyperlipidemia, age, who presented to the hospital unresponsive with respiratory failure and elevated troponin. She remains afebrile and hemodynamically stable, however, critically-ill. It is unclear the reason of her troponin elevation, differential include Pulmonary Emboli, Stroke, ACS, arrhythmia, or sepsis. She has a strong history of GI bleeding and chronic anemia requiring transfusion in the past. She is taking aspirin at home and per family members there have not been any signs of active bleeding recently. Her CHADS2 score is more than 2, however, given her history of GI bleeding and transfusions at least every 3 months, I don't think she is the best candidate for chronic oral anticoagulation. RECOMMENDATIONS: 1. Start Lopressor 25 mg p.o. b.i.d., 2. Continue aspirin 325mg PO daily 3. Start Lipitor 80mg PO daily 4. Telemetry 5. Neurology evaluation, consider MRI 6. CTA of chest to r/o PE 7. Echocardiogram 8. Cardiac enzymes x3. Thank you for the opportunity to take part in the care of this patient. Further therapy to be determined. MD ZONIA Wilkes/AIDEN /5:25 PM /11:23 PM BALJINDER
[2017-01-23] VITALS (24 sets, daily range): BP systolic 108–163; BP diastolic 56–76; PULSE 71–101; RESP 21–35; TEMP 98.8–99.1; O2SAT 100
[2017-01-23 00:09] LABS: MAGNESIUM 1.4 MG/DL (1.5-2.5); POTASSIUM 3.3 MEQ/L (3.5-5.1)
[2017-01-23] MEDS ORDERED: POTASSIUM CHLORIDE 20 MEQ PWD PACKET OG-TUBE ONE (00:15)
[2017-01-23] MEDS ORDERED: POTASSIUM CHLOR 10 MEQ PREMIX 100 ML IV ONE (00:15)
[2017-01-23] MEDS: MAGNESIUM SULFATE 1 GM PREMIX 100 ML IV SCH ×2 (00:45→02:04)
[2017-01-23 00:48] LABS: CKMB 16.1 NG/ML (0.5-3.6)
[2017-01-23] MEDS: POTASSIUM CHLOR 20 MEQ PREMIX 100 ML IV PRN (00:50)
[2017-01-23] MEDS: PIPERACIL-TAZO 4.5 GM PREMIX 100 ML IV SCH (03:15)
[2017-01-23] MEDS: INSULIN NovoLIN REGULAR SUPPLEMENTAL SCALE SQ SCH ×4 (03:15→21:45)
[2017-01-23] MEDS: CHLORHEXIDINE GLUCONATE 2 % 1 PACK (2 CLOTHS) TOP SCH (03:16)
[2017-01-23] MEDS: HEPARIN SODIUM - SQ 10,000 UNITS/ML VIAL SQ SCH ×2 (03:16→16:59)
[2017-01-23] MEDS: RESP: ALBUTEROL 2.5 MG/IPRATROPIUM 0.5 MG NEB (SCH) INH ×4 (04:01→20:27)
[2017-01-23 04:11] LABS: BASOPHIL % 0.1 % (0.0-2.0); HEMATOCRIT 33.6 % (35.0-46.0); HEMO FLAGS DIFF FINAL; LYMPH % 4.2 % (9.0-44.0); LYMPHOCYTE # 0.8 TH/MM3 (1.0-4.8); MEAN CELL VOLUME 91.5 FL (80.0-100.0); MEAN CORPUSCULAR HEMOGLOBIN 30.7 PG (27.0-34.0); MEAN CORPUSCULAR HGB CONC 33.6 % (32.0-36.0); MONO % 5.7 % (0.0-8.0); PLATELET COUNT 108 TH/MM3 (150-450); RED BLOOD COUNT 3.67 MIL/MM3 (4.00-5.30); RED CELL DISTRIBUTION WIDTH 14.1 % (11.6-17.2)
[2017-01-23] MEDS: VANCOMYCIN INJ 1,000 MG in SODIUM CHLOR 0.9% 250 ML INJ 250 ML IV SCH ×2 (04:26→18:28)
[2017-01-23 04:40] LABS: BICARBONATE 18.6 MEQ/L (21.0-32.0); POTASSIUM 4.4 MEQ/L (3.5-5.1)
--- NOTE | 2017-01-23 08:11 | HHI.CCPN ---
Subjective Remarks/Hospital Course Patient is an 81-year-old female with past medical history of anemia of chronic disease, dementia, who presented to [facility] ED via EMS as a stroke alert. According to EMS the patient was last seen somewhere between 11: 30 a.m. and noon at her assisted living facility. She was found on the floor in her apartment, nonverbal, with left gaze, but withdrawal all four extremities to pain. In the ER the patient was intubated with etomidate, succinylcholine and placed on full mechanical ventilation. Her initial blood pressure was 183/88. Stat CT scan of the brain was obtained which showed no evidence of any acute intracranial pathology and no masses identified. 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 The patient also had a CTA of the head which was within normal and CT of the neck showed no evidence of any carotid occlusion. Chest x-ray post intubation showed ET tube 1 cm above the mathew, patchy infiltrates in the left lower lung. After discussion with Dr. Walker from neurology service, the patient deemed not a candidate for TPA and it was thought that her symptoms could be secondary to being postictal versus delirium secondary to sepsis. In the ER she was then placed on Diprivan infusion for sedation and aspirin, cefepime, and azithromycin were ordered Her laboratory data was significant for leukocytosis with WBC of 15.8, mild lactic acidemia with lactic acid level of 2.1, and elevated total CK at 1946 with troponin of 0.44. EKG in the ER showed A fib with RVR at a rate of 147 beats per minute and nonspecific ST wave abnormalities. The rest of the history is limited and most of the history was obtained from reviewing the medical records. When seen the patient is sedated and intubated. Her current blood pressure is 145/79 with a pulse of 114. 7/4 Patient is sedated with Diprivan and intubated. Afebrile. Objective Vital Signs Date Time Temp Pulse Resp B/P Pulse Ox O2 Delivery O2 Flow Rate FiO2 01/23/17 07:59 100 35 01/23/17 06:00 85 01/23/17 04:00 98.9 22 163/76 01/22/17 14:20 Ventilator 01/22/17 13:47 4 Intake and Output 01/22/17 01/22/17 01/23/17 08:00 16:00 00:00 Intake Total 2434 ml Output Total 775 ml Balance 1659 ml Result Diagram: 01/23/17 0356 01/23/17 0356 Other Results Laboratory Tests Test 01/22/17 01/22/17 01/22/17 01/22/17 13:05 13:08 14:00 15:18 Lactic Acid Level 2.1 mmol/L 2.4 mmol/L White Blood Count 15.8 TH/MM3 Red Blood Count 4.34 MIL/MM3 Hemoglobin 13.7 GM/DL Bedside Hemoglobin 13.6 G/DL Hematocrit 39.6 % Bedside Hematocrit 40.0 % Mean Corpuscular Volume 91.2 FL Mean Corpuscular Hemoglobin 31.5 PG Mean Corpuscular Hemoglobin 34.6 % Concent Red Cell Distribution Width 14.0 % Platelet Count 143 TH/MM3 Mean Platelet Volume 8.7 FL Neutrophils (%) (Auto) 88.7 % Lymphocytes (%) (Auto) 5.3 % Monocytes (%) (Auto) 5.9 % Eosinophils (%) (Auto) 0.0 % Basophils (%) (Auto) 0.1 % Neutrophils # (Auto) 14.0 TH/MM3 Lymphocytes # (Auto) 0.8 TH/MM3 Monocytes # (Auto) 0.9 TH/MM3 Eosinophils # (Auto) 0.0 TH/MM3 Basophils # (Auto) 0.0 TH/MM3 CBC Comment DIFF FINAL Differential Comment Prothrombin Time 10.7 SEC Prothromb Time International 1.0 RATIO Ratio Activated Partial 27.8 SEC Thromboplast Time Fibrinogen 342 mg/dL Bedside Sodium 142 MMOL/L Bedside Potassium 3.1 MMOL/L Bedside Chloride 108 MMOL/L Bedside Blood Urea Nitrogen 28 MG/DL Bedside Creatinine 0.9 MG/DL Bedside Glucose 171 MG/DL Total Creatine Kinase 1946 U/L Creatine Kinase MB 17.7 NG/ML Creatine Kinase MB % 0.9 % Troponin I 0.44 NG/ML Human Chorionic Gonadotropin, LESS THAN 1 Quant MIU/ML Blood Type A POSITIVE Antibody Screen NEGATIVE Urine Color YELLOW Urine Turbidity HAZY Urine pH 5.5 Urine Specific [place] 1.015 Urine Protein 100 mg/dL Urine Glucose (UA) NEG mg/dL Urine Ketones 10 mg/dL Urine Occult Blood MOD Urine Nitrite NEG Urine Bilirubin NEG Urine Urobilinogen LESS THAN 2.0 MG/DL Urine Leukocyte Esterase NEG Urine RBC 1 /hpf Urine WBC 1 /hpf Urine Amorphous Sediment RARE Urine Bacteria MANY /hpf Microscopic Urinalysis Comment CATH Urine Opiates Screen NEG Urine Barbiturates Screen NEG Urine Amphetamines Screen NEG Urine Benzodiazepines Screen NEG Urine Cocaine Screen NEG Urine Cannabinoids Screen NEG Test 01/22/17 01/22/17 01/22/17 01/23/17 16:14 17:50 23:19 03:56 Blood Gas Puncture Site RT RADIAL Blood Gas Patient Temperature 98.6 Blood Gas HCO3 14 mmol/L Blood Gas Base Excess -9.7 mmol/L Blood Gas Oxygen Saturation 98 % Arterial Blood pH 7.45 Arterial Blood Partial 20 mmHg Pressure CO2 Arterial Blood Partial 377 mmHG Pressure O2 Arterial Blood Oxygen Content 19.2 Vol % Arterial Blood 0.5 % Carboxyhemoglobin Arterial Blood Methemoglobin 1.2 % Blood Gas Hemoglobin 13.4 G/DL Oxygen Delivery Device VENTILATOR Blood Gas Ventilator Setting 500/16/+5 Blood Gas Inspired Oxygen 100 % Nasal Screen MRSA (PCR) MRSA NOT DETECTED Sodium Level 142 MEQ/L 141 MEQ/L Potassium Level 3.3 MEQ/L 4.4 MEQ/L Chloride Level 111 MEQ/L 112 MEQ/L Carbon Dioxide Level 17.0 MEQ/L 18.6 MEQ/L Anion Gap 14 MEQ/L 10 MEQ/L Blood Urea Nitrogen 33 MG/DL 37 MG/DL Creatinine 1.25 MG/DL 1.48 MG/DL Estimat Glomerular Filtration 41 ML/MIN 34 ML/MIN Rate Random Glucose 159 MG/DL 186 MG/DL Calcium Level 8.5 MG/DL 8.1 MG/DL Phosphorus Level 3.9 MG/DL Magnesium Level 1.4 MG/DL Total Creatine Kinase 2311 U/L Creatine Kinase MB 16.1 NG/ML Creatine Kinase MB % 0.7 % Troponin I 0.63 NG/ML 0.46 NG/ML White Blood Count 20.0 TH/MM3 Red Blood Count 3.67 MIL/MM3 Hemoglobin 11.3 GM/DL Hematocrit 33.6 % Mean Corpuscular Volume 91.5 FL Mean Corpuscular Hemoglobin 30.7 PG Mean Corpuscular Hemoglobin 33.6 % Concent Red Cell Distribution Width 14.1 % Platelet Count 108 TH/MM3 Mean Platelet Volume 9.2 FL Neutrophils (%) (Auto) 90.0 % Lymphocytes (%) (Auto) 4.2 % Monocytes (%) (Auto) 5.7 % Eosinophils (%) (Auto) 0.0 % Basophils (%) (Auto) 0.1 % Neutrophils # (Auto) 18.0 TH/MM3 Lymphocytes # (Auto) 0.8 TH/MM3 Monocytes # (Auto) 1.1 TH/MM3 Eosinophils # (Auto) 0.0 TH/MM3 Basophils # (Auto) 0.0 TH/MM3 CBC Comment DIFF FINAL Differential Comment Imaging Last Impressions Neck CTA 01/22/17 1307 Signed Impressions: Service Date/Time: Sunday, January 22, 2017 13:15 - CONCLUSION: 1. No evidence of carotid occlusion. There is 20-30%% stenosis on the left and There is 10-20%% stenosis on the right 2. Left upper lobe pneumonia Willy Reddy MD Head CTA 01/22/17 1307 Signed Impressions: Service Date/Time: Sunday, January 22, 2017 13:15 - CONCLUSION: Normal examination for a patient of this age. David Briggs MD Head CT 01/22/17 0000 Signed Impressions: Service Date/Time: Sunday, January 22, 2017 13:15 - CONCLUSION: 1. No evidence of acute intracranial pathology. No masses are identified. Old left basal ganglia infarct Willy Reddy MD Chest X-Ray 01/22/17 0000 Signed Impressions: Service Date/Time: Sunday, January 22, 2017 14:14 - CONCLUSION: 1. Status post placement of an NG tube and ET tube. The ET tube tip is 1 cm above the mathew. 2. No pneumothorax. 3. Patchy infiltrates in the left lower lung. David Briggs MD Objective Remarks GENERAL: Patient is 81 yo intubated and sedated SKIN: Warm and dry. HEAD: Normocephalic. EYES: No scleral icterus. No injection or drainage. NECK: Supple, trachea midline. No JVD or lymphadenopathy. CARDIOVASCULAR: Regular rate and rhythm without murmurs, gallops, or rubs. RESPIRATORY: Breath sounds equal bilaterally. No accessory muscle use. GASTROINTESTINAL: Abdomen soft, non-tender, nondistended. MUSCULOSKELETAL: No cyanosis, or edema. Neuro: Sedated A/P Assessment and Plan 1. Vent dependent respiratory failure. 2. Encephalopathy. 3. Left-sided pneumonia. 4. Mild lactic acidemia. 5. A-fib with RVR. 6. Elevated CKs. 7. Elevated troponin. 8. Leukocytosis. 9. History of dementia. Plan: Neuro: On Diprivan infusion for sedation. Daily sedation vacation. Monitor neuro status. CT brain in the ER negative for acute intracranial findings. CTA of the brain within normal. CT neck showed no carotid occlusion. For EEG today. Neuro: Dr. Walker is following, MRI ordered by neuro. Pulm: Continue with vent support and maintain sats >92%. Bronchodilators, ICU vent bundle. Check ABG CV: Monitor HR and BP and maintain MAP >65 mmHg. On Lopressor 25 mg BID, on aspirin 81 mg daily. Monitor CK's with troponins, for 2-D echo to evaluate LV function Cards is following- Dr. Zamudio : Monitor renal function I's and O's and place on electrolyte replacement protocol. On NS at 84 mL an hour. Diurese with Bumex 1mg x1 GI: on Protonix 40 mg IV daily for GI prophylaxis. Start tube feeds- Glucerna 1.5 with goal rate 45ml/hr ID: Continue with abx (Azithromycin, vancomycin and Zosyn). Follow up on blood and sputum cultures Strep pneumoniae and Legionella, urinary antigen pending Nasal washing negative for influenza. Heme: Monitor CBC. Continue Gleevec 400mg daily Endo: SSI with Accu-Chek q. 6-hour for glycemic control. GI prophylaxis with Protonix 40 mg daily and DVT prophylaxis with SCDs and heparin subcu. Spoke to yogesh's daughter Pamella and updated her on patient's condition. Level 3 Hunter Paz MD Jan 23, 2017 08:11
[2017-01-23] MEDS ORDERED: BUMETANIDE INJ 1 MG/4 ML VIAL IV PUSH ONE (08:15)
[2017-01-23] MEDS: ASPIRIN EC 81 MG TABEC PO SCH (09:00)
[2017-01-23] MEDS: DOCUSATE SODIUM 50 MG/SENNA 8.6 MG TAB PO SCH ×2 (09:00→21:00)
[2017-01-23] MEDS: PANTOPRAZOLE SODIUM 40 MG VIAL IV SCH (09:21)
[2017-01-23] MEDS: METOPROLOL TARTRATE 25 MG TAB PO SCH ×2 (09:21→23:39)
[2017-01-23] MEDS: PIPERACIL-TAZO 3.375 GM PREMIX 50 ML IV SCH ×3 (09:22→23:43)
[2017-01-23 09:29] LABS: INDIRECT BILIRUBIN 0.7 MG/DL (0.0-0.8)
[2017-01-23 10:40] LABS: CKMB 9.2 NG/ML (0.5-3.6)
[2017-01-23] MEDS ORDERED: SODIUM BICARBONATE 8.4% INJ 50 MEQ/50 ML SYR IV PUSH ONE (12:00)
[2017-01-23 12:17] LABS: BLOOD GAS BASE EXCESS -8.7 mmol/L (-2-2); BLOOD GAS HCO3 15 mmol/L (22-26); BLOOD GAS METHEMOGLOBIN 1.9 % (0-2); BLOOD GAS O2 HGB SATURATION 96 % (90-100); BLOOD GAS OXYGEN CONTENT 14.9 Vol % (12.0-20.0); BLOOD GAS PCO2 22 mmHg (38-42); BLOOD GAS PO2 179 mmHg (61-120); BLOOD GAS TOTAL HGB 10.8 G/DL (12.0-16.0); CRITICAL VALUE YES; OXYGEN DEVICE VENTILATOR; TEMP CORR TO 98.6
[2017-01-23 12:18] LABS: DRAW SITE RT RADIAL; FIO2 35 %; NUMBER OF ARTERIAL PUNCTURES 1; STAT NO; ULNAR PULSE PRESENT; VENT SETTINGS CPAP/15PS/5PEEP
[2017-01-23 12:37] LABS: BICARBONATE 18.7 MEQ/L (21.0-32.0); POTASSIUM 3.8 MEQ/L (3.5-5.1)
[2017-01-23 12:43] LABS: INDIRECT BILIRUBIN 0.7 MG/DL (0.0-0.8); MAGNESIUM 2.3 MG/DL (1.5-2.5); TOTAL BILIRUBIN ADULT 0.9 MG/DL (0.2-1.0)
--- NOTE | 2017-01-23 13:25 | HHI.PR ---
Review/Management Daily Summary 01/23 follows commands but mildly agitated on the vent will do eeg and mri brain presumably seizure, possible ischemic event, doubt of encephalitis Subjective Active Medications Current Medications Medications (Trade) Dose Ordered Sig/Erick Route Start Time Stop Time Status Last Admin (Protonix Inj) 40 mg DAILY IV 01/22/17 15:30 01/23/17 09:21 (Heparin Inj) 5,000 units Q12H SQ 01/22/17 16:00 01/23/17 03:16 Miscellaneous Information 1 Q361D XX 01/22/17 15:30 01/22/17 15:30 (Chlorhexidine 2% Cloth) 3 pack Taper DAILY@04 TOP 01/23/17 04:00 01/19/18 03:59 01/23/17 03:16 (Chlorhexidine 2% Cloth) 3 pack UNSCH PRN TOP 01/22/17 15:30 (Violet-Colace) 1 tab BID PO 01/22/17 21:00 01/23/17 09:00 (Milk Of Magnesia Liq) 30 ml Q12H PRN PO 01/22/17 15:30 (Senokot) 17.2 mg Q12H PRN PO 01/22/17 15:30 (Dulcolax Supp) 10 mg DAILY PRN RECTAL 01/22/17 15:30 Lactulose 30 ml 30 ml DAILY PRN PO 01/22/17 15:30 Vancomycin HCl 1000 mg/Sodium Chloride 250 ml @ 250 mls/hr Q12H IV 01/22/17 17:00 01/23/17 04:26 (NS 1000 ml Inj) 1,000 ml @ 84 mls/hr [id number] IV 01/22/17 15:30 01/22/17 22:18 (Ecotrin Ec) 81 mg DAILY PO 01/23/17 09:00 (D50w (Vial) Inj) 50 ml UNSCH PRN IV 01/22/17 15:45 (Glucagon Inj) 1 mg UNSCH PRN OTHER 01/22/17 15:45 Insulin Human Regular 1 1 Q6H SQ 01/22/17 15:45 01/23/17 03:15 Azithromycin 500 mg/Sodium Chloride 250 ml @ 250 mls/hr Q24H IV 01/23/17 15:00 Potassium Chloride 100 ml @ 50 mls/hr Q2H PRN IV 01/22/17 15:45 (KCl 20 Meq Premix Inj) 100 ml @ 50 mls/hr Q2H PRN IV 01/22/17 15:45 01/23/17 00:50 Potassium Bicarb/ Potassium Chloride 50 meq 50 meq UNSCH PRN PO 01/22/17 15:45 Potassium Chloride 100 ml @ 25 mls/hr UNSCH PRN IV 01/22/17 15:45 Potassium Chloride 100 ml @ 50 mls/hr Q2H PRN IV 01/22/17 15:45 (Magnesium Sulfate Inj/NS Inj) 100 ml @ 50 mls/hr UNSCH PRN IV 01/22/17 15:45 Magnesium Oxide 800 mg 800 mg UNSCH PRN PO 01/22/17 15:45 (Magnesium Sulfate Inj/NS Inj) 100 ml @ 50 mls/hr UNSCH PRN IV 01/22/17 15:45 Potassium Phosphate 2000 mg 2,000 mg Q4H PRN PO 01/22/17 15:45 (Sodium Phosphate Inj/NS 250 ml Inj) 250 ml @ 42 mls/hr UNSCH PRN IV 01/22/17 15:45 Potassium Phosphate 2000 mg 2,000 mg UNSCH PRN PO/TUBE 01/22/17 15:45 (Potassium Phosphate Inj/NS 250 ml Inj) 260 ml @ 42 mls/hr UNSCH PRN IV 01/22/17 15:45 Metoprolol Tartrate 25 mg 25 mg Q12HR PO 01/22/17 15:45 01/23/17 09:21 Propofol 100 ml @ 0 mls/hr TITRATE IV 01/22/17 16:30 01/22/17 22:16 (Zosyn 3.375 Gm Premix) 50 ml @ 100 mls/hr Q6H IV 01/23/17 11:00 01/23/17 09:22 Allergies Allergies Coded Allergies Novocain (Verified Allergy, Severe, 01/22/17) Procaine (Verified Allergy, Severe, ANAPHYLAXIS, 01/22/17) Exam I&O / VS 01/22/17 01/22/17 01/23/17 15:00 23:00 07:00 Intake Total 2434 ml 1283 ml Output Total 775 ml 200 ml Balance 1659 ml 1083 ml Intake IV Total 2434 ml 1283 ml Output Urine Total 775 ml 200 ml # Voids 0 # Bowel Movements 0 0 Vital Signs Date Time Temp Pulse Resp B/P Pulse Ox O2 Delivery O2 Flow Rate FiO2 01/23/17 12:00 98.9 74 21 133/63 100 01/23/17 12:00 75 01/23/17 12:00 35 01/23/17 11:22 100 35 01/23/17 10:00 71 01/23/17 09:01 35 01/23/17 08:00 85 01/23/17 08:00 35 01/23/17 08:00 99.0 97 29 162/68 100 01/23/17 07:59 100 35 01/23/17 06:00 85 01/23/17 04:02 100 35 01/23/17 04:00 98.9 87 22 163/76 100 01/23/17 04:00 35 01/23/17 04:00 87 01/23/17 02:00 87 01/23/17 01:32 100 35 01/23/17 00:00 40 01/23/17 00:00 99.0 89 22 115/58 100 01/23/17 00:00 89 01/22/17 22:00 84 01/22/17 20:29 100 40 01/22/17 20:00 109 01/22/17 20:00 100 01/22/17 20:00 99.6 109 27 120/66 100 01/22/17 18:00 99.4 104 25 118/71 100 01/22/17 18:00 103 01/22/17 17:15 100 100 01/22/17 15:24 110 16 155/91 100 01/22/17 14:53 100 18 123/69 100 100 01/22/17 14:20 97 100 01/22/17 14:20 97 Ventilator 100 01/22/17 14:20 100 01/22/17 13:47 98 Nasal Cannula 4 01/22/17 13:29 104 24 95 Nasal Cannula 4 Objective Radiology Results Last 48 hours Impressions Neck CTA 01/22/17 1307 Signed Impressions: Service Date/Time: Sunday, January 22, 2017 13:15 - CONCLUSION: 1. No evidence of carotid occlusion. There is 20-30%% stenosis on the left and There is 10-20%% stenosis on the right 2. Left upper lobe pneumonia Willy Reddy MD Head CTA 01/22/17 1307 Signed Impressions: Service Date/Time: Sunday, January 22, 2017 13:15 - CONCLUSION: Normal examination for a patient of this age. David Briggs MD Head CT 01/22/17 0000 Signed Impressions: Service Date/Time: Sunday, January 22, 2017 13:15 - CONCLUSION: 1. No evidence of acute intracranial pathology. No masses are identified. Old left basal ganglia infarct Willy Reddy MD Chest X-Ray 01/22/17 0000 Signed Impressions: Service Date/Time: Sunday, January 22, 2017 14:14 - CONCLUSION: 1. Status post placement of an NG tube and ET tube. The ET tube tip is 1 cm above the mathew. 2. No pneumothorax. 3. Patchy infiltrates in the left lower lung. David Briggs MD Micro and Labs Laboratory Tests Test 01/22/17 01/22/17 01/22/17 01/22/17 14:00 15:18 16:14 17:50 Urine Color YELLOW Urine Turbidity HAZY Urine pH 5.5 Urine Specific Crewe 1.015 Urine Protein 100 Urine Glucose (UA) NEG Urine Ketones 10 Urine Occult Blood MOD Urine Nitrite NEG Urine Bilirubin NEG Urine Urobilinogen LESS THAN 2.0 Urine Leukocyte Esterase NEG Urine RBC 1 Urine WBC 1 Urine Amorphous Sediment RARE Urine Bacteria MANY Microscopic Urinalysis Comment CATH Urine Opiates Screen NEG Urine Barbiturates Screen NEG Urine Amphetamines Screen NEG Urine Benzodiazepines Screen NEG Urine Cocaine Screen NEG Urine Cannabinoids Screen NEG Lactic Acid Level 2.4 Blood Gas Puncture Site RT RADIAL Blood Gas Patient Temperature 98.6 Blood Gas HCO3 14 Blood Gas Base Excess -9.7 Blood Gas Oxygen Saturation 98 Arterial Blood pH 7.45 Arterial Blood Partial 20 Pressure CO2 Arterial Blood Partial 377 Pressure O2 Arterial Blood Oxygen Content 19.2 Arterial Blood 0.5 Carboxyhemoglobin Arterial Blood Methemoglobin 1.2 Blood Gas Hemoglobin 13.4 Oxygen Delivery Device VENTILATOR Blood Gas Ventilator Setting 500/16/+5 Blood Gas Inspired Oxygen 100 Nasal Screen MRSA (PCR) MRSA NOT DETECTED Test 01/22/17 01/23/17 01/23/17 01/23/17 23:19 03:56 07:34 09:01 Sodium Level 142 141 Potassium Level 3.3 4.4 4.1 Chloride Level 111 112 Carbon Dioxide Level 17.0 18.6 Anion Gap 14 10 Blood Urea Nitrogen 33 37 Creatinine 1.25 1.48 Estimat Glomerular Filtration 41 34 Rate Random Glucose 159 186 Calcium Level 8.5 8.1 Phosphorus Level 3.9 Magnesium Level 1.4 Total Creatine Kinase 2311 1740 Creatine Kinase MB 16.1 9.2 Creatine Kinase MB % 0.7 0.5 Troponin I 0.63 0.46 White Blood Count 20.0 Red Blood Count 3.67 Hemoglobin 11.3 Hematocrit 33.6 Mean Corpuscular Volume 91.5 Mean Corpuscular Hemoglobin 30.7 Mean Corpuscular Hemoglobin 33.6 Concent Red Cell Distribution Width 14.1 Platelet Count 108 Mean Platelet Volume 9.2 Neutrophils (%) (Auto) 90.0 Lymphocytes (%) (Auto) 4.2 Monocytes (%) (Auto) 5.7 Eosinophils (%) (Auto) 0.0 Basophils (%) (Auto) 0.1 Neutrophils # (Auto) 18.0 Lymphocytes # (Auto) 0.8 Monocytes # (Auto) 1.1 Eosinophils # (Auto) 0.0 Basophils # (Auto) 0.0 CBC Comment DIFF FINAL Differential Comment Total Bilirubin 1.0 Direct Bilirubin 0.3 Indirect Bilirubin 0.7 Aspartate Amino Transf 67 (AST/SGOT) Alanine Aminotransferase 33 (ALT/SGPT) Alkaline Phosphatase 43 Total Protein 6.1 Albumin 3.1 Lactic Acid Level 1.6 Test 01/23/17 01/23/17 11:15 11:41 Blood Gas Puncture Site RT RADIAL Blood Gas Patient Temperature 98.6 Blood Gas HCO3 15 Blood Gas Base Excess -8.7 Blood Gas Oxygen Saturation 96 Arterial Blood pH 7.44 Arterial Blood Partial 22 Pressure CO2 Arterial Blood Partial 179 Pressure O2 Arterial Blood Oxygen Content 14.9 Arterial Blood 1.0 Carboxyhemoglobin Arterial Blood Methemoglobin 1.9 Blood Gas Hemoglobin 10.8 Oxygen Delivery Device VENTILATOR Blood Gas Ventilator Setting CPAP/15PS/5PEEP Blood Gas Inspired Oxygen 35 Sodium Level 141 Potassium Level 3.8 Chloride Level 112 Carbon Dioxide Level 18.7 Anion Gap 10 Blood Urea Nitrogen 36 Creatinine 1.42 Estimat Glomerular Filtration 36 Rate Random Glucose 131 Calcium Level 8.5 Phosphorus Level 3.9 Magnesium Level 2.3 Total Bilirubin 0.9 Direct Bilirubin 0.2 Indirect Bilirubin 0.7 Aspartate Amino Transf 64 (AST/SGOT) Alanine Aminotransferase 34 (ALT/SGPT) Alkaline Phosphatase 45 Troponin I 0.25 Total Protein 6.4 Albumin 3.1 Date/Time Procedure Status Source Growth 01/22/17 19:00 Gram Stain - Final Resulted Sputum Endotracheal 01/22/17 19:00 Sputum Culture Resulted Sputum Endotracheal Pending 01/22/17 17:50 Influenza Types A,B Antigen (YAMILA) - Final Complete Nasal Aspirate NEGATIVE FOR FLU A AND B ANTIGEN.... 01/22/17 15:18 Aerobic Blood Culture - Preliminary Resulted Blood Peripheral NO GROWTH IN 1 DAY 01/22/17 15:18 Anaerobic Blood Culture - Preliminary Resulted Blood Peripheral NO GROWTH IN 1 DAY 01/22/17 14:00 Legionella Antigen - Final Complete Urine Catheterized Urine PRESUMPTIVE NEGATIVE FOR LEGIONELLA P... 01/22/17 14:00 Streptococcus pneumoniae Antigen (M - Final Complete Urine Catheterized Urine PRESUMPTIVE NEGATIVE FOR STREPTOCOCCU... Prasanna Walker MD Jan 23, 2017 13:25
--- NOTE | 2017-01-23 13:29 | EKG ---
Date Performed: 01/22/2017 Time Performed: 13:51:42 PTAGE: 81 years EKG: ATRIAL FIBRILLATION WITH RAPID VENTRICULAR RESPONSE NONSPECIFIC ST & T-WAVE ABNORMALITY ABN ORMAL RHYTHM ECG INTERPRETATION BASED ON A DEFAULT AGE OF 40 YEARS PREVIOUS TRACING : 04/13/2014 08.51 compared to the previous EKG atrial fibrillation wit h rapid ventricular responses new DOCTOR: Arvin Del Angel Interpretating Date/Time 01/23/2017 13:22:13
[2017-01-23] MEDS: AZITHROMYCIN INJ 500 MG in SODIUM CHLOR 0.9% 250 ML INJ 250 ML IV SCH (14:28)
[2017-01-23] MEDS: SODIUM CHLOR 0.9% 1000 ML INJ 1,000 ML IV SCH ×2 (14:29→23:44)
[2017-01-23] MEDS: PROPOFOL 1000 MG/100 ML INJ 100 ML IV SCH (14:29)
--- NOTE | 2017-01-23 16:56 | MG ---
cc: KAYLEE MEDINA M.D. Lab No: Date: 01/23/2017 Age: Sex: F Race: INTRODUCTION An EEG was obtained on this 81-year-old patient with a history of confusion and decreased responsiveness. DESCRIPTION The patient is described intubated on Diprivan. The EEG shows a lot of theta and delta rhythms bilaterally. At times there is some triphasic slow waves frontally. The slower rhythms are questionably more prominent on the left than right. There are beta rhythms diffusely. There is mild background reactivity intermittently. Photic stimulation disclosed some driving response versus a reactive background. INTERPRETATION Abnormal EEG because of bilateral slowing with some triphasic slow waves frontally. The findings are most compatible with a moderately severe diffuse disturbance of cerebral function though the slowing is questionably more prominent on the left than right. Clinical and imaging correlation. No epileptiform features present. MD RAMEZ Ontiveros/KK /4:37 PM /4:49 PM
[2017-01-23] MEDS ORDERED: IMATINIB MESYLATE 400 MG PO SCH (17:00)
[2017-01-24] VITALS (15 sets, daily range): BP systolic 126–156; BP diastolic 61–133; PULSE 75–94; RESP 15–29; TEMP 97.7–99.5; O2SAT 100
[2017-01-24] MEDS: RESP: ALBUTEROL 2.5 MG/IPRATROPIUM 0.5 MG NEB (SCH) INH ×3 (02:33→15:56)
[2017-01-24] MEDS: INSULIN NovoLIN REGULAR SUPPLEMENTAL SCALE SQ SCH ×3 (03:45→15:45)
[2017-01-24] MEDS: CHLORHEXIDINE GLUCONATE 2 % 1 PACK (2 CLOTHS) TOP SCH (04:00)
[2017-01-24] MEDS: PIPERACIL-TAZO 3.375 GM PREMIX 50 ML IV SCH (04:45)
[2017-01-24] MEDS: VANCOMYCIN INJ 1,000 MG in SODIUM CHLOR 0.9% 250 ML INJ 250 ML IV SCH (04:47)
[2017-01-24] MEDS: HEPARIN SODIUM - SQ 10,000 UNITS/ML VIAL SQ SCH (04:48)
[2017-01-24 05:14] LABS: BLOOD GAS BASE EXCESS -6.6 mmol/L (-2-2); BLOOD GAS HCO3 17 mmol/L (22-26); BLOOD GAS METHEMOGLOBIN 1.9 % (0-2); BLOOD GAS O2 HGB SATURATION 96 % (90-100); BLOOD GAS OXYGEN CONTENT 13.2 Vol % (12.0-20.0); BLOOD GAS PCO2 24 mmHg (38-42); BLOOD GAS PO2 185 mmHg (61-120); BLOOD GAS TOTAL HGB 9.5 G/DL (12.0-16.0); TEMP CORR TO 98.6
[2017-01-24 05:15] LABS: CRITICAL VALUE YES; DRAW SITE RT RADIAL; FIO2 40 %; NUMBER OF ARTERIAL PUNCTURES 1; OXYGEN DEVICE VENTILATOR; STAT NO; ULNAR PULSE PRESENT; VENT SETTINGS AC 16/500/5PEEP
[2017-01-24 06:20] LABS: AUTOMATED NEUTROPHIL # 12.6 TH/MM3 (1.8-7.7); BASOPHIL % 0.1 % (0.0-2.0); EOSINOPHIL % 0.3 % (0.0-4.0); HEMATOCRIT 28.5 % (35.0-46.0); HEMO FLAGS DIFF FINAL; LYMPHOCYTE # 1.2 TH/MM3 (1.0-4.8); MEAN CELL VOLUME 91.3 FL (80.0-100.0); MEAN CORPUSCULAR HEMOGLOBIN 31.3 PG (27.0-34.0); MEAN CORPUSCULAR HGB CONC 34.3 % (32.0-36.0); MONO % 7.6 % (0.0-8.0); PLATELET COUNT 106 TH/MM3 (150-450); RED BLOOD COUNT 3.12 MIL/MM3 (4.00-5.30); RED CELL DISTRIBUTION WIDTH 14.3 % (11.6-17.2)
[2017-01-24] MEDS: PROPOFOL 1000 MG/100 ML INJ 100 ML IV SCH ×3 (06:47→19:17)
[2017-01-24 06:58] LABS: POTASSIUM 2.6 MEQ/L (3.5-5.1)
[2017-01-24] MEDS: METOPROLOL TARTRATE 25 MG TAB PO SCH (08:20)
[2017-01-24] MEDS: DOCUSATE SODIUM 50 MG/SENNA 8.6 MG TAB PO SCH (08:21)
[2017-01-24] MEDS: PANTOPRAZOLE SODIUM 40 MG VIAL IV SCH (08:21)
[2017-01-24] MEDS: ASPIRIN EC 81 MG TABEC PO SCH (08:21)
[2017-01-24] MEDS: POTASSIUM CHLOR 20 MEQ PREMIX 100 ML IV PRN ×3 (08:22→14:01)
[2017-01-24] MEDS ORDERED: [UNRECOGNIZED DRUG - OTHER] PO SCH (09:00)
[2017-01-24] MEDS ORDERED: IMATINIB PO SCH (09:00)
[2017-01-24] MEDS ORDERED: VANCOMYCIN INJ 1,000 MG in SODIUM CHLOR 0.9% 250 ML INJ 250 ML IV ONE (11:15)
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
[2017-01-24] MEDS ORDERED: POTASSIUM CHLOR 40 MEQ PREMIX 100 ML IV ONE (11:45)
--- NOTE | 2017-01-24 12:05 | HHI.PR ---
Review/Management Daily Summary 01/23 follows commands but mildly agitated on the vent will do eeg and mri brain presumably seizure, possible ischemic event, doubt of encephalitis 01/24 she seems stable neuro moves all 4 limbs grossly equally following commands when sedation held eeg seen yest mri brain pending sepsis likely culprit I will be out of town and if mri shows remarkable findings then please call and one of my partners will reassess Subjective Subjective Comments No new acute events reported Active Medications Current Medications Medications (Trade) Dose Ordered Sig/Erick Route Start Time Stop Time Status Last Admin (Protonix Inj) 40 mg DAILY IV 01/22/17 15:30 01/24/17 08:21 Miscellaneous Information 1 [id number] XX 01/22/17 15:30 01/22/17 15:30 (Chlorhexidine 2% Cloth) 3 pack Taper DAILY@04 TOP 01/23/17 04:00 01/19/18 03:59 01/24/17 04:00 (Chlorhexidine 2% Cloth) 3 pack UNSCH PRN TOP 01/22/17 15:30 (Violet-Colace) 1 tab BID PO 01/22/17 21:00 01/23/17 21:00 (Milk Of Magnesia Liq) 30 ml Q12H PRN PO 01/22/17 15:30 (Senokot) 17.2 mg Q12H PRN PO 01/22/17 15:30 (Dulcolax Supp) 10 mg DAILY PRN RECTAL 01/22/17 15:30 Lactulose 30 ml 30 ml DAILY PRN PO 01/22/17 15:30 Vancomycin HCl 1000 mg/Sodium Chloride 250 ml @ 250 mls/hr Q12H IV 01/22/17 17:00 01/24/17 04:47 (NS 1000 ml Inj) 1,000 ml @ 84 mls/hr [id number] IV 01/22/17 15:30 01/23/17 23:44 (Ecotrin Ec) 81 mg DAILY PO 01/23/17 09:00 (D50w (Vial) Inj) 50 ml UNSCH PRN IV 01/22/17 15:45 (Glucagon Inj) 1 mg UNSCH PRN OTHER 01/22/17 15:45 Insulin Human Regular 1 1 Q6H SQ 01/22/17 15:45 01/23/17 03:15 Azithromycin 500 mg/Sodium Chloride 250 ml @ 250 mls/hr Q24H IV 01/23/17 15:00 01/23/17 14:28 Potassium Chloride 100 ml @ 50 mls/hr Q2H PRN IV 01/22/17 15:45 (KCl 20 Meq Premix Inj) 100 ml @ 50 mls/hr Q2H PRN IV 01/22/17 15:45 01/24/17 10:44 Potassium Bicarb/ Potassium Chloride 50 meq 50 meq UNSCH PRN PO 01/22/17 15:45 Potassium Chloride 100 ml @ 25 mls/hr UNSCH PRN IV 01/22/17 15:45 Potassium Chloride 100 ml @ 50 mls/hr Q2H PRN IV 01/22/17 15:45 (Magnesium Sulfate Inj/NS Inj) 100 ml @ 50 mls/hr UNSCH PRN IV 01/22/17 15:45 Magnesium Oxide 800 mg 800 mg UNSCH PRN PO 01/22/17 15:45 (Magnesium Sulfate Inj/NS Inj) 100 ml @ 50 mls/hr UNSCH PRN IV 01/22/17 15:45 Potassium Phosphate 2000 mg 2,000 mg Q4H PRN PO 01/22/17 15:45 (Sodium Phosphate Inj/NS 250 ml Inj) 250 ml @ 42 mls/hr UNSCH PRN IV 01/22/17 15:45 Potassium Phosphate 2000 mg 2,000 mg UNSCH PRN PO/TUBE 01/22/17 15:45 (Potassium Phosphate Inj/NS 250 ml Inj) 260 ml @ 42 mls/hr UNSCH PRN IV 01/22/17 15:45 Metoprolol Tartrate 25 mg 25 mg Q12HR PO 01/22/17 15:45 01/24/17 08:20 (Diprivan 1000 Mg/100ml Inj) 100 ml @ 0 mls/hr TITRATE IV 01/22/17 16:30 01/24/17 06:47 Patient Own Medication PT OWN MED: KIERRA... DAILY PO 01/24/17 09:00 01/24/17 08:21 Heparin Sodium (Porcine) 5000 units 5,000 units Q8H SQ 01/24/17 12:00 UNV Cefepime HCl 2000 mg/Sodium Chloride 100 ml @ 200 mls/hr Q8H IV 01/24/17 11:15 UNV Metronidazole 100 ml @ 100 mls/hr Q8H IV 01/24/17 11:15 UNV (Vancomycin Inj/ NS 250 ml Inj) 250 ml @ 250 mls/hr ONCE ONCE IV 01/24/17 11:15 01/24/17 12:14 UNV (Bumex Inj) 1 mg ONCE ONCE IV PUSH 01/24/17 11:45 01/24/17 11:46 UNV Potassium Bicarb/ Potassium Chloride 50 meq 50 meq ONCE ONCE PO 01/24/17 11:45 01/24/17 11:46 UNV Potassium Chloride 100 ml @ 25 mls/hr BOLUS ONCE IV 01/24/17 11:45 01/24/17 15:44 UNV (Vancomycin Consult Pharmacy) 0 ml @ 0 mls/hr UNSCH OTHER 01/24/17 11:45 UNV Allergies Allergies Coded Allergies Novocain (Verified Allergy, Severe, 01/22/17) Procaine (Verified Allergy, Severe, ANAPHYLAXIS, 01/22/17) Exam I&O / VS 01/23/17 01/23/17 01/24/17 15:00 23:00 07:00 Intake Total 879 ml 1700 ml Output Total 1300 ml 1050 ml Balance -421 ml 650 ml Intake IV Total 879 ml 1477 ml Tube Feeding 223 ml Output Urine Total 1300 ml 1050 ml # Bowel Movements 0 Vital Signs Date Time Temp Pulse Resp B/P Pulse Ox O2 Delivery O2 Flow Rate FiO2 01/24/17 11:45 100 35 01/24/17 07:59 100 35 01/24/17 06:00 87 01/24/17 04:06 100 40 01/24/17 04:00 87 01/24/17 04:00 100 01/24/17 04:00 98.8 87 15 148/67 100 01/24/17 02:00 86 01/24/17 01:47 100 40 01/24/17 00:00 94 01/24/17 00:00 98.9 94 17 137/80 100 01/24/17 00:00 100 01/23/17 22:03 40 01/23/17 22:03 100 40 01/23/17 22:00 101 01/23/17 20:00 99 01/23/17 20:00 35 01/23/17 20:00 99.1 99 31 100 01/23/17 20:00 100 35 01/23/17 18:00 91 21 145/66 100 01/23/17 18:00 97 01/23/17 17:00 90 22 138/68 100 01/23/17 16:00 98.8 87 22 142/67 100 01/23/17 16:00 90 01/23/17 16:00 35 01/23/17 16:00 87 22 142/67 100 01/23/17 15:23 100 35 01/23/17 15:00 82 23 130/69 100 01/23/17 14:00 79 01/23/17 14:00 80 22 120/65 100 01/23/17 13:00 78 21 139/66 100 Objective Micro and Labs Laboratory Tests Test 01/24/17 01/24/17 05:00 05:26 Blood Gas Puncture Site RT RADIAL Blood Gas Patient Temperature 98.6 Blood Gas HCO3 17 Blood Gas Base Excess -6.6 Blood Gas Oxygen Saturation 96 Arterial Blood pH 7.45 Arterial Blood Partial 24 Pressure CO2 Arterial Blood Partial 185 Pressure O2 Arterial Blood Oxygen Content 13.2 Arterial Blood 1.0 Carboxyhemoglobin Arterial Blood Methemoglobin 1.9 Blood Gas Hemoglobin 9.5 Oxygen Delivery Device VENTILATOR Blood Gas Ventilator Setting AC 16/500/5PEEP Blood Gas Inspired Oxygen 40 White Blood Count 15.0 Red Blood Count 3.12 Hemoglobin 9.8 Hematocrit 28.5 Mean Corpuscular Volume 91.3 Mean Corpuscular Hemoglobin 31.3 Mean Corpuscular Hemoglobin 34.3 Concent Red Cell Distribution Width 14.3 Platelet Count 106 Mean Platelet Volume 10.1 Neutrophils (%) (Auto) 84.0 Lymphocytes (%) (Auto) 8.0 Monocytes (%) (Auto) 7.6 Eosinophils (%) (Auto) 0.3 Basophils (%) (Auto) 0.1 Neutrophils # (Auto) 12.6 Lymphocytes # (Auto) 1.2 Monocytes # (Auto) 1.1 Eosinophils # (Auto) 0.0 Basophils # (Auto) 0.0 CBC Comment DIFF FINAL Differential Comment Sodium Level 144 Potassium Level 2.6 Chloride Level 113 Carbon Dioxide Level 21.0 Anion Gap 10 Blood Urea Nitrogen 32 Creatinine 1.25 Estimat Glomerular Filtration 41 Rate Random Glucose 113 Calcium Level 8.1 Date/Time Procedure Status Source Growth 01/23/17 19:45 Aerobic Blood Culture - Preliminary Resulted Blood Peripheral NO GROWTH IN 1 DAY 01/23/17 19:45 Anaerobic Blood Culture - Final Resulted Blood Peripheral QNS - SEE AEROBE REPORT 01/22/17 19:00 Gram Stain - Final Resulted Sputum Endotracheal 01/22/17 19:00 Sputum Culture - Preliminary Resulted Sputum Endotracheal RESULTS PENDING 01/22/17 17:50 Influenza Types A,B Antigen (YAMILA) - Final Complete Nasal Aspirate NEGATIVE FOR FLU A AND B ANTIGEN.... 01/22/17 14:00 Legionella Antigen - Final Complete Urine Catheterized Urine PRESUMPTIVE NEGATIVE FOR LEGIONELLA P... 01/22/17 14:00 Streptococcus pneumoniae Antigen (M - Final Complete Urine Catheterized Urine PRESUMPTIVE NEGATIVE FOR STREPTOCOCCU... Prasanna Walker MD Jan 24, 2017 12:05
[2017-01-24] MEDS ORDERED: Vancomycin Consult Pharmacy 1 EA OTHER SCH (12:30)
[2017-01-24] MEDS ORDERED: HEPARIN SODIUM - SQ 10,000 UNITS/ML VIAL SQ SCH (13:00)
[2017-01-24] MEDS ORDERED: POTASSIUM CHLORIDE 25 MEQ EFFERVESCENT TAB PO ONE (13:00)
[2017-01-24] MEDS ORDERED: BUMETANIDE INJ 1 MG/4 ML VIAL IV PUSH ONE (13:00)
[2017-01-24] MEDS ORDERED: CEFEPIME INJ 2,000 MG in SODIUM CHLORIDE 0.9% INJ 100 ML IV SCH ×2 (13:00→22:00)
[2017-01-24] MEDS: AZITHROMYCIN INJ 500 MG in SODIUM CHLOR 0.9% 250 ML INJ 250 ML IV SCH (13:56)
[2017-01-24] MEDS ORDERED: metroNIDAZOLE 500 MG INJ 100 ML IV SCH (14:00)
[2017-01-24] MEDS: SODIUM CHLOR 0.9% 1000 ML INJ 1,000 ML IV SCH (14:02)
--- NOTE | 2017-01-24 14:05 | RADRPT ---
EXAM DATE/TIME: 01/24/2017 13:19 [facility] COMPARISON: CHEST SINGLE AP, January 22, 2017, 14:14. INDICATIONS : Respiratory Disease. MEDICAL HISTORY : Non-responsive. SURGICAL HISTORY : Non-responsive. ENCOUNTER: Subsequent ACUITY: 3 days PAIN SCORE: Non-responsive. LOCATION: Bilateral chest FINDINGS: The endotracheal tube and NG tube are in good position. There is no pneumothorax. The previously note d patchy infiltrate in the left infrahilar area appears to be improved. The right lung is grossly andrew ar. No definite new infiltrates are seen. The heart size appears to be enlarged. There are no pleural effusions. The bony structures are stable. CONCLUSION: 1. Improving previously noted left perihilar infiltrate. 2. No new infiltrates are demonstrated. David Briggs MD on January 24, 2017 at 14:02 Board Certified Radiologist. This report was verified electronically.
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
[2017-01-24] MEDS ORDERED: PANT40P IV (15:11)
[2017-01-24] MEDS ORDERED: METO25TA3 PO (15:11)
[2017-01-24] MEDS ORDERED: HEPA10003 SQ (15:11)
[2017-01-24] MEDS ORDERED: LEVOFLOXACIN 750 MG PREMIX INJ 150 ML IV SCH (16:00)
[2017-01-24] MEDS ORDERED: CEFE2INJ2 IV (16:12)
[2017-01-24] MEDS ORDERED: LEVO750T3 PO (16:13)
[2017-01-24] MEDS ORDERED: VANC1000P IV (16:14)
--- NOTE | 2017-01-24 16:30 | RADRPT ---
EXAM DATE/TIME: 01/24/2017 13:00 [facility] COMPARISON: MRI BRAIN W & W/O CONTRAST, October 13, 2016, 11:46. INDICATIONS : Found down with possible seizures or stroke. MEDICAL HISTORY : Hypertension. SURGICAL HISTORY : Hysterectomy. Lt hip replacment for tumor removal. ENCOUNTER: Subsequent ACUITY: 2 day PAIN SCORE: Nonresponsive. LOCATION: cranial TECHNIQUE: Multiplanar, multisequence MRI of the brain was performed without contrast. FINDINGS: The craniocervical junction and midline structures are unremarkable. There is abnormal signal intensi ty in the posterior parietal regions bilaterally as well as minimally in the occipital lobes. There i s no diffusion-weighted abnormality. His findings are new when compared to the prior MRI. No traction fluid collections are identified. No areas of acute hemorrhage are seen. Posterior fossa structures are unremarkable. CONCLUSION: 1. 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 Followup RI in 3-5 days is r ecommended. Willy Reddy MD on January 24, 2017 at 16:15 Board Certified Radiologist. This report was verified electronically.
[2017-01-24] MEDS ORDERED: PHARMACY ORDERED LAB ONE (16:45)
[2017-01-24] MEDS ORDERED: NAFCILLIN INJ 2,000 MG in SODIUM CHLORIDE 0.9% INJ 100 ML IV SCH (17:00)
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
[2017-01-25] MEDS ORDERED: ASPIRIN EC 81 MG TABEC PO SCH (09:00)
== END 2017-01-24 19:15 | disposition short-term general hospital (02) | DRG 871 ==
LOC: NEPE 13:03 → NEDA 15:22 → HIMN 17:25
PROVIDERS: ADMIT Internal Medicine Critical Care Medicine; ATTEND Internal Medicine Critical Care Medicine
PROC: 0BH17EZ Insertion of Endotracheal Airway into Trachea, Via Natural or Artificial Opening (ICD-10-PCS; principal; 2017-01-22)
PROC: 5A1945Z Respiratory Ventilation, 24-96 Consecutive Hours (ICD-10-PCS; 2017-01-22)
DX: A41.9 Sepsis, unspecified organism (principal); G93.41 Metabolic encephalopathy; J96.01 Acute respiratory failure with hypoxia; J18.9 Pneumonia, unspecified organism; E87.2 Acidosis; F03.90 Unspecified dementia, unspecified severity, without behavioral disturbance, psychotic disturbance, mood disturbance, and anxiety; D63.8 Anemia in other chronic diseases classified elsewhere; I48.91 Unspecified atrial fibrillation; R65.20 Severe sepsis without septic shock; B95.4 Other streptococcus as the cause of diseases classified elsewhere; I35.0 Nonrheumatic aortic (valve) stenosis; R74.8 Abnormal levels of other serum enzymes; I10 Essential (primary) hypertension; Z85.00 Personal history of malignant neoplasm of unspecified digestive organ; Z79.82 Long term (current) use of aspirin; Z86.73 Personal history of transient ischemic attack (TIA), and cerebral infarction without residual deficits; E87.6 Hypokalemia
CPT/HCPCS: 31500; 36600; 70450; 70496; 70498; 70551; 71010; 80048; 80076; 80307; 81001; 82435; 82550; 82552; 82565; 82805; 82947; 83605; 83735; 84100; 84132; 84295; 84484; 84520; 84702; 85025; 85384; 85610; 85730; 86850; 86900; 86901; 87040; 87070; 87149; 87205; 87449; 87641; 87804; 93005; 94002; 94003; 94640; 94664; 95819; 96374; 96375; C9113; J0330; J0456; J0692; J1644; J2543; J3370; J3475; J3480; J7030; J7050; P9612; Q9967